=== PATIENT | female | born 1965 | race Caucasian/White ===

== ENCOUNTER → 2020-08-27 13:21 | Outpatient (BNVA) | payer OTHER, SELFPAY | PROVIDERS: Visit Provider Physician Assistant | DX: E66.9 Obesity, unspecified (principal); Z68.30 Body mass index [BMI] 30.0-30.9, adult; K90.49 Malabsorption due to intolerance, not elsewhere classified; L72.9 Follicular cyst of the skin and subcutaneous tissue, unspecified; Z98.84 Bariatric surgery status | CPT/HCPCS: 99212 ==

== ENCOUNTER → 2020-09-05 15:52 | Outpatient (BNVA) | payer OTHER, SELFPAY | PROVIDERS: Visit Provider Surgery | DX: L02.211 Cutaneous abscess of abdominal wall (principal) | CPT/HCPCS: 99202 ==

== ENCOUNTER → 2020-09-12 11:49 | Outpatient (BNVA) | payer OTHER, SELFPAY | PROVIDERS: Visit Provider Surgery | DX: L02.211 Cutaneous abscess of abdominal wall (principal) | CPT/HCPCS: 99212 ==

== ENCOUNTER → 2020-09-26 08:35 | Outpatient (BNVA) | payer OTHER, SELFPAY | PROVIDERS: Visit Provider Dietitian, Registered | DX: B37.3 Candidiasis of vulva and vagina (principal); E66.9 Obesity, unspecified | CPT/HCPCS: Q3014 ==

== ENCOUNTER → 2020-10-29 14:16 | Outpatient (BNVA) | payer OTHER, SELFPAY | PROVIDERS: PCP Internal Medicine; Visit Provider Surgery | DX: E66.3 Overweight (principal); Z68.26 Body mass index [BMI] 26.0-26.9, adult; Z98.84 Bariatric surgery status | CPT/HCPCS: 99212 ==

== ENCOUNTER → 2020-11-05 10:22 | Outpatient (BNVA) | payer OTHER, SELFPAY | PROVIDERS: PCP Internal Medicine; Referring Provider Internal Medicine; Visit Provider Hospitalist | DX: J45.909 Unspecified asthma, uncomplicated (principal) | CPT/HCPCS: Q3014 ==

== ENCOUNTER 2020-11-14 07:27 | Outpatient (REF) | payer OTHER, SELFPAY ==
[2020-11-14 07:34] VITALS: BP 116/79; PULSE 73; RESP 18; TEMP 36.2; O2SAT 100; BMI 27.1
--- NOTE | 2020-11-14 07:51 | MHC.SHP ---
Pre-Procedural Eval Section A The patient is an INPATIENT: No Changes since office visit: Yes Patient answered all questions; No Cold of Flu in the past 2 weeks, No New Medical Problems and No Changes in Medication The History & Physical has been completed within 30 days and I have reviewed it.: Yes Section B Chief Complaint: Abdominal wall abscess, Z01.818,K91.2,Z90.3 Allergies: Allergies Allergy/AdvReac Type Severity Reaction Status Date / Time Iodinated Contrast Media Allergy Intermediate ANXIETY/WALTER Verified 11/05/20 10:27 [IV CONTRAST] MORE FRUIT, SKINS Allergy Intermediate MOUTH Uncoded 11/05/20 10:[address] IV dye Allergy Unknown Anaphylaxis Uncoded 11/05/20 10:27 Plan Diagnosis/Plan: Unchanged I have reviewed the history and physical and performed a pertinent physical examination on my patient. No changes have occurred unless specified.
[2020-11-14 08:11] LABS: MANUAL DIFF FLAG NO
[2020-11-14 08:17] LABS: Basophils Percent Auto 0.8 % (0-2); Eosinophils Absolute Auto 0.1 X10*3/uL (0.0-0.4); Eosinophils Percent Auto 1.4 % (0-4); Hematocrit 39.7 % (37-47); Hemoglobin 12.2 g/dl (12.0-16.0); Imm Gran Abs Auto 0.01 X10*3/uL (0.00-0.03); Imm Gran Pct Auto 0.2 % (0.0-0.4); Lymphocytes Absolute Auto 2.4 X10*3/uL (1.2-4.9); Mean Corpuscular HGB Conc 30.7 g/dl (31.0-35.0); Mean Corpuscular Hemoglobin 27.2 pg (27.0-33.0); Mean Corpuscular Volume 88.6 fL (80-98); Monocytes Absolute Auto 0.3 X10*3/uL (0.1-1.2); Monocytes Percent Auto 6.6 % (2-11); Neutrophils Absolute Auto 2.3 X10*3/uL (2.0-8.3); Platelet Count 309 X10*3/uL (160-400); Red Blood Count 4.48 X10*6/uL (4.20-5.50); Red Cell Distribution Width 13.4 % (11.0-16.0); White Blood Count 5.2 X10*3/uL (4.8-10.8)
[2020-11-14 08:35] VITALS: BP 100/69; PULSE 60; RESP 16; O2SAT 99
--- NOTE | 2020-11-14 08:37 | PM.OP ---
Brief Operative Note Date of Service: 11/14/20 Pre-op diagnosis: Abscess abdominal epidermal inclusion cyst Post-op diagnosis: same Procedure: Excision of abdominal epidermal inclusion cyst Implants: none Surgeon: Adam Smith MD Anesthesia: local Estimated blood loss (mL): 2 Pathology: other (epidermal inclusion cyst, h/o abscess) Condition: stable Disposition: other (home)
--- NOTE | 2020-11-14 08:38 | W.PM.OPN ---
Operative Note Operative Note Date of Service: 11/14/20 Narrative: Preoperative Diagnosis: Abscess abdominal epidermal inclusion cyst Postoperative Diagnosis: same Procedure: Excision of epidermal inclusion cyst Surgeon: Adam Smith MD Anesthesia: Local Indications for procedure: 55 year old female patient with a previous history of an infected skin cyst of the left upper quadrant presenting today to excised this cyst. Findings: 1 cm cyst left upper quadrant without evidence of active infection. Complications: none EBL: 2 ml Specimen: Abdominal wall epidermal inclusion cyst with h/o abscess Procedure details:Patient was brought to the minor surgery suite and placed in a supine position. The site of surgery was confirmed by the patient in the left upper quadrant. Informed consent was assured. Skin was prepped with Betadine and draped in a sterile fashion. Local anesthesia consisting of 1% lidocaine with epinephrine was infiltrated around the cyst in elliptical fashion. An elliptical incision was then created with a scalpel carried down through subcutaneous tissue around the cyst wall. The lesion was excised and sent to pathology for further examination The wounds were irrigated and suctioned dry. Skin was then closed using a running subcuticular 4 0 Polysorb suture. Steri-Strips 2 x 2 gauze and Tegaderm were then applied. The patient tolerated the procedure well was discharged to home in stable condition.
[2020-11-14 08:40] LABS: Alanine Aminotransferase 18 U/L (0-31); Albumin Level 3.9 g/dL (3.5-5.0); Alkaline Phosphatase 67 U/L (39-117); Anion Gap 11 (12-20); Aspartate Amino Transferase 19 U/L (5-31); Bilirubin Total 0.4 mg/dL (0.0-1.0); Blood Urea Nitrogen 16 mg/dL (9-16); Calcium 9.6 mg/dL (8.4-10.2); Carbon Dioxide 33 mmol/L (22-29); Chloride 104 mmol/L (96-108); Cholesterol 217 mg/dL; Estimated Glomerular Filt Rate > 60; Glucose Fasting 93 mg/dL (60-99); HDL Cholesterol 66 mg/dL; Iron 73 mcg/dL (30-160); LDL Cholesterol Calculated 135 mg/dl; Percent Iron Saturation 23 % (15-50); Potassium 4.6 mmol/L (3.3-5.1); Sodium 143 mmol/L (135-145); Total Iron Binding Capacity 312 mcg/dL (228-428); Total Protein 6.7 g/dL (6.5-8.0); Triglycerides 82 mg/dL; Unsaturated Iron Binding 239 ug/dL
[2020-11-14 09:06] LABS: Thyroid Stimulating Hormone 2.95 uIU/mL (0.32-4.0); Vitamin D 25-OH Total 53.8 ng/mL (>30)
[2020-11-14 09:29] LABS: Vitamin B12 1097 pg/mL (200-900)
[2020-11-17 04:03] LABS: Zinc 78 mcg/dL (60-130)
[2020-11-19 06:07] LABS: Vitamin B1 25 nmol/L (8-30)
[2020-11-19 20:42] LABS: Vitamin A 37 mcg/dL (38-98)
== END 2020-11-14 07:28 | disposition home or self-care (01) ==
LOC: HO.MS 07:27
PROVIDERS: Absent Provider Surgery; Visit Provider Surgery
PROC: (CPT 11401; principal; 2020-11-14 08:00)
DX: L02.211 Cutaneous abscess of abdominal wall (principal); Z98.890 Other specified postprocedural states; Z98.84 Bariatric surgery status; Z90.3 Acquired absence of stomach [part of]; J45.909 Unspecified asthma, uncomplicated; F32.9 Major depressive disorder, single episode, unspecified; Z91.041 Radiographic dye allergy status; Z86.16 Personal history of COVID-19
CPT/HCPCS: 11401; 36415; 80053; 80061; 82306; 82607; 83540; 84425; 84443; 84590; 84630; 85025; 86140; 88304; 88305

== ENCOUNTER → 2020-11-21 15:57 | Outpatient (BNVA) | payer OTHER, SELFPAY | PROVIDERS: Visit Provider Surgery | DX: L02.211 Cutaneous abscess of abdominal wall (principal) | CPT/HCPCS: 99212 ==

== ENCOUNTER → 2020-11-28 08:22 | Outpatient (BNVA) | payer OTHER, SELFPAY | PROVIDERS: PCP Internal Medicine; Visit Provider Dietitian, Registered ==

== ENCOUNTER → 2021-02-05 14:47 | Outpatient (BNVA) | payer OTHER, SELFPAY | PROVIDERS: PCP Internal Medicine; Referring Provider Internal Medicine; Visit Provider Physician Assistant | DX: E66.3 Overweight (principal); Z68.36 Body mass index [BMI] 36.0-36.9, adult; Z98.84 Bariatric surgery status | CPT/HCPCS: 99212 ==

== ENCOUNTER → 2021-02-25 13:54 | Outpatient (BNVA) | payer OTHER, SELFPAY | PROVIDERS: PCP Internal Medicine; Referring Provider Internal Medicine; Visit Provider Dietitian, Registered | DX: E66.9 Obesity, unspecified (principal); Z68.25 Body mass index [BMI] 25.0-25.9, adult | CPT/HCPCS: 97803 ==

== ENCOUNTER → 2021-04-25 15:35 | Outpatient (BNVA) | payer OTHER, SELFPAY | PROVIDERS: PCP Internal Medicine; Referring Provider Internal Medicine; Visit Provider Surgery | DX: E66.3 Overweight (principal); K90.49 Malabsorption due to intolerance, not elsewhere classified; E55.9 Vitamin D deficiency, unspecified; Z68.25 Body mass index [BMI] 25.0-25.9, adult; Z87.891 Personal history of nicotine dependence; Z91.041 Radiographic dye allergy status; Z91.018 Allergy to other foods; Z98.84 Bariatric surgery status; Z90.3 Acquired absence of stomach [part of]; Z79.899 Other long term (current) drug therapy | CPT/HCPCS: 99212 ==

== ENCOUNTER 2021-04-26 09:44 | Outpatient (REF) | payer OTHER, SELFPAY ==
[2021-04-26 10:48] LABS: MANUAL DIFF FLAG NO
[2021-04-26 10:55] LABS: Basophils Percent Auto 0.6 % (0-2); Eosinophils Absolute Auto 0.1 X10*3/uL (0.0-0.4); Eosinophils Percent Auto 1.3 % (0-4); Hematocrit 39.6 % (37-47); Hemoglobin 11.8 g/dl (12.0-16.0); Imm Gran Abs Auto 0.01 X10*3/uL (0.00-0.03); Imm Gran Pct Auto 0.2 % (0.0-0.4); Lymphocytes Absolute Auto 1.8 X10*3/uL (1.2-4.9); Mean Corpuscular HGB Conc 29.8 g/dl (31.0-35.0); Mean Corpuscular Hemoglobin 26.6 pg (27.0-33.0); Mean Corpuscular Volume 89.4 fL (80-98); Mean Platelet Volume 9.8 fL (9.4-12.3); Monocytes Absolute Auto 0.3 X10*3/uL (0.1-1.2); Monocytes Percent Auto 5.9 % (2-11); Neutrophils Absolute Auto 2.5 X10*3/uL (2.0-8.3); Platelet Count 282 X10*3/uL (160-400); Red Blood Count 4.43 X10*6/uL (4.20-5.50); Red Cell Distribution Width 13.4 % (11.0-16.0); White Blood Count 4.7 X10*3/uL (4.8-10.8)
[2021-04-26 11:10] LABS: Estimated Average Glucose 114 mg/dL; Hemoglobin A1c % 5.6 %
[2021-04-26 11:32] LABS: Alanine Aminotransferase 24 U/L (0-31); Albumin Level 4.2 g/dL (3.5-5.0); Alkaline Phosphatase 73 U/L (39-117); Anion Gap 11 (12-20); Aspartate Amino Transferase 19 U/L (5-31); Bilirubin Total 0.6 mg/dL (0.0-1.0); Blood Urea Nitrogen 19 mg/dL (9-16); C Reactive Protein 0.11 mg/dL (< or = 0.50); Carbon Dioxide 31 mmol/L (22-29); Chloride 105 mmol/L (96-108); Cholesterol 219 mg/dL; Estimated Glomerular Filt Rate > 60; Glucose Fasting 86 mg/dL (60-99); HDL Cholesterol 79 mg/dL; Iron 96 mcg/dL (30-160); LDL Cholesterol Calculated 130 mg/dl; Percent Iron Saturation 28 % (15-50); Sodium 143 mmol/L (135-145); Total Iron Binding Capacity 344 mcg/dL (228-428); Total Protein 7.1 g/dL (6.5-8.0); Triglycerides 53 mg/dL; Unsaturated Iron Binding 248 ug/dL
[2021-04-26 11:45] LABS: Ferritin 88 ng/mL (10-250); TSH reflex Free T4 1.68 uIU/mL (0.32-4.0); Vitamin D 25-OH Total 33.3 ng/mL (>30)
[2021-04-26 11:55] LABS: Folate 16.5 ng/mL (> or = 4.0); Vitamin B12 618 pg/mL (200-900)
[2021-04-29 16:20] LABS: Calcium (PTHI) 9.8 mg/dL (8.6-10.4); PTHI 39 pg/mL (14-64)
[2021-04-30 21:11] LABS: Insulin Level Total 5.4 uIU/mL
[2021-05-01 01:42] LABS: Zinc 84 mcg/dL (60-130)
[2021-05-01 11:56] LABS: Vitamin B1 14 nmol/L (8-30)
[2021-05-01 19:51] LABS: Vitamin A 40 mcg/dL (38-98)
== END 2021-04-26 09:45 | disposition home or self-care (01) ==
LOC: HO.LAB 09:44
PROVIDERS: Visit Provider Physician Assistant
DX: E66.01 Morbid (severe) obesity due to excess calories (principal); Z68.26 Body mass index [BMI] 26.0-26.9, adult; K91.2 Postsurgical malabsorption, not elsewhere classified; Z90.3 Acquired absence of stomach [part of]; Z98.84 Bariatric surgery status
CPT/HCPCS: 36415; 80053; 80061; 82306; 82607; 82728; 82746; 83036; 83525; 83540; 83970; 84425; 84443; 84590; 84630; 85025; 86140

== ENCOUNTER → 2021-07-05 12:48 | Outpatient (BNVA) | payer OTHER, SELFPAY | PROVIDERS: PCP Internal Medicine; Visit Provider Hospitalist | DX: J45.40 Moderate persistent asthma, uncomplicated (principal); F41.9 Anxiety disorder, unspecified; J44.9 Chronic obstructive pulmonary disease, unspecified | CPT/HCPCS: 99212 ==

== ENCOUNTER 2021-08-09 14:46 | Outpatient (REF) | payer OTHER, SELFPAY ==
[2021-08-09 14:55] LABS: MANUAL DIFF FLAG NO
[2021-08-09 15:17] LABS: Basophils Absolute Auto 0.1 X10*3/uL (0.0-0.2); Basophils Percent Auto 0.8 % (0-2); Eosinophils Percent Auto 0.6 % (0-4); Hematocrit 41.2 % (37.0-47.0); Hemoglobin 12.5 g/dl (12.0-16.0); Imm Gran Abs Auto 0.01 X10*3/uL (0.00-0.03); Imm Gran Pct Auto 0.2 % (0.0-0.4); Lymphocytes Absolute Auto 1.8 X10*3/uL (1.2-4.9); Lymphocytes Percent Auto 29.1 % (20-40); Mean Corpuscular HGB Conc 30.3 g/dl (31.0-35.0); Mean Corpuscular Hemoglobin 26.8 pg (27.0-33.0); Mean Corpuscular Volume 88.2 fL (80.0-98.0); Monocytes Absolute Auto 0.4 X10*3/uL (0.1-1.2); Monocytes Percent Auto 5.9 % (2-11); Neutrophils Percent Auto 63.4 % (45-73); Platelet Count 295 X10*3/uL (160-400); Red Blood Count 4.67 X10*6/uL (4.20-5.50); Red Cell Distribution Width 13.2 % (11.0-16.0); White Blood Count 6.3 X10*3/uL (4.8-10.8)
[2021-08-09 15:21] LABS: Prothrombin Time 11.6 SEC (9.9-13.0)
[2021-08-09 15:24] LABS: Partial Thromboplastin Time 36.5 SEC (24.1-38.0)
[2021-08-09 15:39] LABS: Alanine Aminotransferase 27 U/L (0-31); Albumin Level 4.4 g/dL (3.5-5.0); Alkaline Phosphatase 73 U/L (39-117); Anion Gap 11 (12-20); Aspartate Amino Transferase 24 U/L (5-31); Bilirubin Total 0.5 mg/dL (0.0-1.0); Blood Urea Nitrogen 16 mg/dL (9-16); Calcium 9.8 mg/dL (8.4-10.2); Carbon Dioxide 31 mmol/L (22-29); Chloride 104 mmol/L (96-108); Estimated Glomerular Filt Rate > 60; Glucose Random 86 mg/dL (60-115); Potassium 4.2 mmol/L (3.3-5.1); Sodium 142 mmol/L (135-145); Total Protein 7.3 g/dL (6.5-8.0)
== END 2021-08-09 14:47 | disposition home or self-care (01) ==
LOC: HO.LAB 14:46
PROVIDERS: PCP Internal Medicine; Visit Provider Nurse Practitioner Family
DX: R58 Hemorrhage, not elsewhere classified (principal); R06.02 Shortness of breath; R06.2 Wheezing
CPT/HCPCS: 80053; 83735; 85025; 85610; 85730; U0003; U0005

== ENCOUNTER → 2022-04-18 10:44 | Outpatient (BNVA) | payer OTHER, SELFPAY | PROVIDERS: Visit Provider Nurse Practitioner Family | DX: G90.522 Complex regional pain syndrome I of left lower limb (principal); M25.562 Pain in left knee; G57.92 Unspecified mononeuropathy of left lower limb; M47.816 Spondylosis without myelopathy or radiculopathy, lumbar region; M79.7 Fibromyalgia | CPT/HCPCS: 99202 ==

== ENCOUNTER → 2022-05-28 09:41 | Outpatient (BNVA) | payer OTHER, SELFPAY | PROVIDERS: Visit Provider Nurse Practitioner Family | DX: M25.562 Pain in left knee (principal); M17.12 Unilateral primary osteoarthritis, left knee; G57.92 Unspecified mononeuropathy of left lower limb; G90.529 Complex regional pain syndrome I of unspecified lower limb | CPT/HCPCS: 99212 ==

== ENCOUNTER 2022-07-08 08:14 | Outpatient (REF) | payer OTHER, SELFPAY ==
--- NOTE | ~2022-07-08 | MR_ITS ---
EXAMINATION: MR KNEE WITHOUT CONTRAST, LEFT CLINICAL INFORMATION: Chronic left knee pain. Osteoarthritis. COMPARISON: None. TECHNIQUE: MRI of the knee without contrast was performed using routine sequences on a high-field scanner. FINDINGS: MENISCI: Medial Meniscus: Intact Lateral Meniscus: Discoid lateral meniscus without articular surface tearing. LIGAMENTS: Cruciate: Intact. Collateral: Intact. EXTENSOR MECHANISM: Intact ARTICULAR CARTILAGE/BONE: Patellofemoral Compartment: Inferior central trochlear articular cartilage signal heterogeneity and surface irregularity with areas of full-thickness loss and minimal subchondral cystic change measuring up to 1.6 cm in ML dimension. Tiny marginal osteophytes. Medial Compartment: Intact articular cartilage. Lateral Compartment: Intact articular cartilage. JOINT FLUID AND BURSAE: Trace joint effusion and trace Gibbons's cyst. MR/MR knee LT wo con IMPRESSION: 1. Partially discoid lateral meniscus without articular surface meniscal tearing. 2. Central trochlea arthrosis with areas of full-thickness loss and subchondral cystic change. Trace joint effusion and trace Gibbons's cyst.
== END 2022-07-08 08:15 | disposition home or self-care (01) ==
LOC: HO.MRI 08:14
PROVIDERS: Visit Provider Psychiatry & Neurology Neurology
DX: M17.12 Unilateral primary osteoarthritis, left knee (principal)
CPT/HCPCS: 73721

== ENCOUNTER 2022-07-11 09:57 | Outpatient (REF) | payer OTHER, SELFPAY ==
--- NOTE | 2022-07-11 | PFT_ITS ---
Forced vital capacity 98%, FEV1 101%, FEV1/FVC ratio is 81. FSA38-25 101% and MVV 91%. Post-bronchodilator therapy, there is no significant change. Total lung capacity 106%. Residual volume 102%. Diffusion capacity 101%. CONCLUSION: Normal pulmonary function test and there is no evidence of obstructive or restrictive pulmonary disorder. MD LAILA Arambula/JENNI / [id number]
== END 2022-07-11 09:58 | disposition home or self-care (01) ==
LOC: HO.RESP 09:57
PROVIDERS: Visit Provider Hospitalist
DX: J44.9 Chronic obstructive pulmonary disease, unspecified (principal)
CPT/HCPCS: 94060; 94727; 94729

== ENCOUNTER 2022-07-23 06:13 | Outpatient (REF) | payer OTHER, SELFPAY | END 2022-07-23 06:14 | disposition home or self-care (01) | LOC: CF 06:13 | PROVIDERS: Visit Provider Internal Medicine | DX: Z13.89 Encounter for screening for other disorder (principal) ==

== ENCOUNTER → 2022-10-07 13:17 | Outpatient (BNVA) | payer OTHER, SELFPAY | PROVIDERS: PCP Internal Medicine; Visit Provider Hospitalist | DX: J45.40 Moderate persistent asthma, uncomplicated (principal); R06.02 Shortness of breath; J30.9 Allergic rhinitis, unspecified; F41.9 Anxiety disorder, unspecified | CPT/HCPCS: 99212 ==

== ENCOUNTER → 2023-04-02 12:58 | Outpatient (BNVA) | payer OTHER, SELFPAY | PROVIDERS: Visit Provider Hospitalist | DX: J45.40 Moderate persistent asthma, uncomplicated (principal); J30.9 Allergic rhinitis, unspecified; R06.02 Shortness of breath | CPT/HCPCS: 99212 ==

== ENCOUNTER 2023-12-23 10:44 | Outpatient (AMB) | payer OTHER, SELFPAY ==
--- NOTE | 2023-12-23 11:02 | A.OFFVIS_ITS ---
Intake VS Expanded 12/23/23 11:09 BP 120/69 Blood Pressure Location Rt brachial Blood Pressure Position Sitting Pulse 83 Pulse Source Pulse Oximeter Temp 97.0 F Temperature Source Temporal Artery Scan Pulse Oximetry 99 Oxygen Delivery Method Room Air Height 5 ft 2 in Weight 150 lb 12.8 oz BMI 27.6 Body Fat % 38.6 Body Fat Mass 58.2 Fat Free Mass 92.6 Visceral Fat Rating 9.0 Body Water % 43.4 Body Water Mass 65.4 Muscle Mass/Score 88.0 Basal Metabolic Rate/Score 1,279 Intake Visit Reasons: (OV) PO LSG 04/24/20 Allergies Iodinated Contrast Media [IV CONTRAST] Allergy (Intermediate, Verified 12/23/23 11:07) ANXIETY/TREMORE CT IV dye Allergy (Intermediate, Uncoded 12/23/23 11:07) Anaphylaxis FRUIT, SKINS Allergy (Intermediate, Uncoded 12/23/23 11:07) MOUTH ITCHING Medication List - Last Reconciled 12/23/23 by JOY Ramirez acetaminophen 500 mg PO Q4-6H PRN 30 days albuterol sulfate 90 mcg/actuation 1 inh inhalation Q6H PRN albuterol sulfate 90 mcg/actuation 2 inhalations inhalation Q6H PRN 30 days albuterol sulfate 2.5 mg (3 mL) inhalation Q6H PRN 30 days aspirin 325 mg PO DAILY azelastine 2 sprays intranasal BID 90 days calcium carbonate (Calcium 500) 500 mg PO BID cariprazine (Vraylar) 3 mg PO QAM cetirizine 10 mg PO DAILY cetirizine (Zyrtec) 10 mg PO DAILY 30 days cholecalciferol (vitamin D3) 50 mcg PO DAILY 90 days diphenhydramine HCl (Banophen) 50 mg PO BEDTIME PRN epinephrine IM DIRECTED estradiol (Yuvafem) 0 mcg vaginal fluticasone propionate 50 mcg/actuation 2 sprays intranasal DAILY 30 days xkttaebprum-atquubdiv-ywpghhfn 200-62.5-25 mcg (Trelegy Ellipta) 1 inh inhalation DAILY 30 days hydrocortisone 1% topical BID lidocaine 5% 3 patches topical DAILY loratadine 10 mg PO DAILY 30 days meloxicam 15 mg PO DAILY mometasone-formoterol 100-5 mcg/actuation (Dulera) 2 puffs inhalation Q12H 30 days montelukast (Singulair) 10 mg PO BEDTIME 30 days svssengvpuwz-svp-tqmw-FA-vit K 45 mg iron- 800 mcg-120 mcg (Bariatric Multivitamins) caps PO nebulizers As directed pantoprazole 0 mg PO pregabalin 100 mg PO BID 30 days quetiapine 100 mg PO BEDTIME sennosides (senna) 8.6 mg PO BEDTIME PRN 30 days sertraline 300 mg PO Q OTHER DAY PRN sucralfate 10 mL PO QID trazodone 25 mg (1/2 x 50 mg) PO BEDTIME PRN zolpidem 10 mg PO BEDTIME HPI HPI Comments History of Present Illness Details This?is a?58?yo female who is s/p LSG 04/24/[address] Chery. Presents for 3 year 8 month post op visit. Weight at last visit on was 139.6 pounds with a BMI of 25.5, weight today is 150.8 pounds, representing an 11.2 pound weight gain with a BMI today of 27.6.? No complaints of nausea, emesis, abdominal pain or reflux, or constipation. 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 Brother No problems noted. Brother No problems noted. Brother No problems noted. Sister No problems noted. Sister No problems noted. Sister No problems noted. Sister No problems noted. Son No problems noted. Daughter No problems noted. Family/Other Mental health disorder Substance use disorder Social History Housing: Apartment Alcohol intake: never Patient Tobacco Use Status: Former Tobacco user Tobacco use type: Cigarette Years Smoked: 19 e-Cigarette/Vaping Use: Never Used Second Hand Smoke Exposure: No service: No Current occupational status: unemployed Physical Exam Vital Signs: Last Vital Signs Temp 97.0 F 12/23/23 11:09 Pulse 83 12/23/23 11:09 BP 120/69 12/23/23 11:09 Pulse Ox 99 12/23/23 11:09 Oxygen Delivery Method Room Air 12/23/23 11:09 BMI result Body Mass Index 27.6 Assessment & Plan Assessment & Plan (1) Overweight: Code(s): E66.3 - Overweight (2) S/P laparoscopic sleeve gastrectomy: Code(s): Z98.84 - Bariatric surgery status Plan Pt's current eating habits appear very low in protein. Discussed restarting a high protein meal plan. Breakfast- Orgain shake, 2 scoops in 8oz unsweetened almond milk Lunch- ONE bar, can have with some fruit Dinner- 6 forks protein, 6 forks salad/veg Labs ordered. RTC 6 weeks for accountability. Texted meal plan to pt and encouraged her to reach out between appts with any concerns. Patient is overweight and is not considered stable at this time. I spent a total of 30 minutes reviewing/updating records, examining the patient and counseling the patient on weight management as detailed above. Orders: Orders Insulin Today Z98.84 - Bariatric surgery status Lipid Panel Today Z98.84 - Bariatric surgery status Comprehensive Met. Panel Today Z.84 - Bariatric surgery status Vitamin B12 and Folate Today Z98.84 - Bariatric surgery status Zinc Today Z98.84 - Bariatric surgery status Vitamin B1 Today Z98.84 - Bariatric surgery status Vitamin A Today Z98.84 - Bariatric surgery status TSH reflex Free T4 Today Z98.84 - Bariatric surgery status Vitamin D 25-OH Total Today Z98.84 - Bariatric surgery status Hemoglobin A1c Today Z98.84 - Bariatric surgery status Complete Blood Count Auto Diff Today Z98.84 - Bariatric surgery status IRON PROFILE Today Z98.84 - Bariatric surgery status C Reactive Protein Today Z98.84 - Bariatric surgery status Ferritin Today Z98.84 - Bariatric surgery status Quality Reporting (2019) Adult ([facility] ) Smoking risk assessment performed?: Yes Patient Tobacco Use Status: Former Tobacco user Coding Level of Care Code Est Pt Level 4 (81006) Diagnoses Overweight E66.3 S/P laparoscopic sleeve gastrectomy Z98.84
[2023-12-23 11:09] VITALS: BP 120/69; PULSE 83; TEMP 36.1; O2SAT 99; BMI 27.6
== END 2023-12-23 11:54 | disposition home or self-care (01) ==
PROVIDERS: PCP Internal Medicine; Visit Provider Physician Assistant Surgical
DX: E66.3 Overweight (principal); Z98.84 Bariatric surgery status
CPT/HCPCS: 99214

== ENCOUNTER 2023-12-23 10:44 | Outpatient (REF) | payer OTHER, SELFPAY ==
[2023-12-23 12:15] LABS: MANUAL DIFF FLAG NO
[2023-12-23 12:34] LABS: Basophils Absolute Auto 0.1 X10*3/uL (0.0-0.2); Basophils Percent Auto 1.6 % (0-2); Eosinophils Absolute Auto 0.1 X10*3/uL (0.0-0.4); Eosinophils Percent Auto 2.7 % (0-4); Hematocrit 41.4 % (37.0-47.0); Hemoglobin 12.6 g/dl (12.0-16.0); Imm Gran Abs Auto 0.01 X10*3/uL (0.00-0.03); Imm Gran Pct Auto 0.2 % (0.0-0.4); Lymphocytes Absolute Auto 1.5 X10*3/uL (1.2-4.9); Lymphocytes Percent Auto 34.2 % (20-40); Mean Corpuscular HGB Conc 30.4 g/dl (31.0-35.0); Mean Corpuscular Hemoglobin 26.8 pg (27.0-33.0); Mean Corpuscular Volume 88.1 fL (80.0-98.0); Mean Platelet Volume 9.1 fL (9.4-12.3); Monocytes Absolute Auto 0.3 X10*3/uL (0.1-1.2); Monocytes Percent Auto 5.6 % (2-11); Neutrophils Absolute Auto 2.5 x10*3/uL (2.0-8.3); Neutrophils Percent Auto 55.7 % (45-73); Platelet Count 370 X10*3/uL (160-400); Red Cell Distribution Width 13.4 % (11.0-16.0); White Blood Count 4.5 X10*3/uL (4.8-10.8)
[2023-12-23 12:42] LABS: Estimated Average Glucose 120 mg/dL; Hemoglobin A1c % 5.8 % (<6.0)
[2023-12-23 13:22] LABS: Alanine Aminotransferase 17 U/L (0-31); Albumin Level 4.6 g/dL (3.5-5.0); Alkaline Phosphatase 67 U/L (39-117); Anion Gap 12 (12-20); Aspartate Amino Transferase 19 U/L (5-31); Bilirubin Total 0.3 mg/dL (0.0-1.0); Blood Urea Nitrogen 18 mg/dL (9-16); Calcium 10.1 mg/dL (8.4-10.2); Carbon Dioxide 31 mmol/L (22-29); Chloride 103 mmol/L (96-108); Cholesterol 275 mg/dL (<200); Estimated Glomerular Filt Rate > 60; Glucose Random 84 mg/dL (60-115); HDL Cholesterol 80 mg/dL (>40); Iron 110 mcg/dL (30-160); LDL Cholesterol Calculated 172 mg/dL (<100); Percent Iron Saturation 33 % (15-50); Sodium 142 mmol/L (135-145); Total Iron Binding Capacity 338 mcg/dL (228-428); Total Protein 8.3 g/dL (6.5-8.0); Triglycerides 116 mg/dL (<150); Unsaturated Iron Binding 228 ug/dL
[2023-12-23 13:44] LABS: Ferritin 83 ng/mL (10-250); Insulin 12 uU/mL (2-29); TSH reflex Free T4 2.77 uIU/mL (0.32-4.0); Vitamin D 25-OH Total 32.1 ng/mL (>30)
[2023-12-23 13:53] LABS: Folate 13.4 ng/mL (> or = 4.0); Vitamin B12 706 pg/mL (200-900)
[2023-12-28 10:09] LABS: Zinc 92 mcg/dL (60-130)
[2023-12-29 06:28] LABS: Vitamin B1 19 nmol/L (8-30)
[2023-12-30 01:48] LABS: Vitamin A 71 mcg/dL (38-98)
== END 2023-12-23 10:45 | disposition home or self-care (01) ==
LOC: HO.LAB 10:44
PROVIDERS: Visit Provider Physician Assistant Surgical
DX: Z13.6 Encounter for screening for cardiovascular disorders (principal); Z98.84 Bariatric surgery status
CPT/HCPCS: 36415; 80053; 80061; 82306; 82607; 82728; 82746; 83036; 83525; 83540; 84425; 84443; 84590; 84630; 85025; 86140; 99212

== ENCOUNTER → 2024-02-08 09:10 | Outpatient (BNVA) | payer OTHER, SELFPAY | PROVIDERS: Visit Provider Physician Assistant Surgical ==

== ENCOUNTER 2024-02-08 09:40 | Outpatient (AMB) | payer OTHER, SELFPAY ==
--- NOTE | 2024-02-08 09:34 | MHC.OFFVISWM ---
Intake Visit Reasons: (telephone) PO LSG 04/24/20 Allergies Iodinated Contrast Media [IV CONTRAST] Allergy (Intermediate, Verified 12/23/23 11:07) ANXIETY/TREMORE CT IV dye Allergy (Intermediate, Uncoded 12/23/23 11:07) Anaphylaxis FRUIT, SKINS Allergy (Intermediate, Uncoded 12/23/23 11:07) MOUTH ITCHING Medication List - Last Reconciled 02/08/24 by JOY Ramirez acetaminophen 500 mg PO Q4-6H PRN 30 days albuterol sulfate 90 mcg/actuation 1 inh inhalation Q6H PRN albuterol sulfate 90 mcg/actuation 2 inhalations inhalation Q6H PRN 30 days albuterol sulfate 2.5 mg (3 mL) inhalation Q6H PRN 30 days aspirin 325 mg PO DAILY azelastine 2 sprays intranasal BID 90 days calcium carbonate (Calcium 500) 500 mg PO BID cariprazine (Vraylar) 3 mg PO QAM cetirizine 10 mg PO DAILY cetirizine (Zyrtec) 10 mg PO DAILY 30 days cholecalciferol (vitamin D3) 50 mcg PO DAILY 90 days diphenhydramine HCl (Banophen) 50 mg PO BEDTIME PRN epinephrine IM DIRECTED estradiol (Yuvafem) 0 mcg vaginal fluticasone propionate 50 mcg/actuation 2 sprays intranasal DAILY 30 days fnpgoivrkub-qadqhbkow-mltudcgz 200-62.5-25 mcg (Trelegy Ellipta) 1 inh inhalation DAILY 30 days hydrocortisone 1% topical BID lidocaine 5% 3 patches topical DAILY loratadine 10 mg PO DAILY 30 days meloxicam 15 mg PO DAILY mometasone-formoterol 100-5 mcg/actuation (Dulera) 2 puffs inhalation Q12H 30 days montelukast (Singulair) 10 mg PO BEDTIME 30 days eosczylzbooz-rku-lmlp-FA-vit K 45 mg iron- 800 mcg-120 mcg (Bariatric Multivitamins) caps PO nebulizers As directed pantoprazole 0 mg PO pregabalin 100 mg PO BID 30 days quetiapine 100 mg PO BEDTIME sennosides (senna) 8.6 mg PO BEDTIME PRN 30 days sertraline 300 mg PO Q OTHER DAY PRN sucralfate 10 mL PO QID trazodone 25 mg (1/2 x 50 mg) PO BEDTIME PRN zolpidem 10 mg PO BEDTIME HPI Comments Details: This?is a?58?yo female who is s/p LSG 04/24/2020. Weight at last visit on 12/23/2023 was 150.8 pounds with a BMI of 27.6, weight today is same.? No complaints of nausea, emesis, abdominal pain or reflux, or constipation. 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 Brother No problems noted. Brother No problems noted. Brother No problems noted. Sister No problems noted. Sister No problems noted. Sister No problems noted. Sister No problems noted. Son No problems noted. Daughter No problems noted. Family/Other Mental health disorder Substance use disorder Social History Housing: Apartment Alcohol intake: never Patient Tobacco Use Status: Former Tobacco user Tobacco use type: Cigarette Years Smoked: 19 e-Cigarette/Vaping Use: Never Used Second Hand Smoke Exposure: No service: No Current occupational status: unemployed Quality Reporting (2019) Adult ([facility] 138//) Smoking risk assessment performed?: Yes Patient Tobacco Use Status: Former Tobacco user Telehealth Telehealth Telehealth Platform: Telephone Location of provider rendering services: practice address Location of patient: address on file Patient Identification confirmed using: Name, : Yes Telehealth method: voice only Patient verbally consented to treatment: Yes Patient verbally consented to billing insurance company: Yes Patient informed of any privacy concerns related to visit: Yes Minutes spent on Phone/Video with Pt.: 12 Assessment & Plan Assessment & Plan (1) Overweight: Code(s): E66.3 - Overweight Category: Medical (2) S/P laparoscopic sleeve gastrectomy: Code(s): Z98.84 - Bariatric surgery status Category: Surgical Plan Will keep same meal plan for now as pt reports doing well on it. She is comfortable at current weight. Labs reviewed, pt encouraged to discuss elevated cholesterol levels with PCP. RTC 3 months, texted pt my contact info for any questions between visits. Patient is overweight and is not considered stable at this time. I spent a total of 30 minutes reviewing/updating records, examining the patient and counseling the patient on weight management as detailed above.
--- OUTSIDE RECORDS SUMMARY | 2024-02-08 09:42 | XMS_ITS | Continuity of Care Document ---
Author Organization [facility] ter Address [address] [place] [address]- Care Team Providers Care Regrind Mill Operator Name Role Phone Melly Angel Primary Care Physician [phone] Encounter [facility] Date(s): 11/15/19 - 12/30/[address] [address]- [facility] Attending Physician: Ramon MACHADO, Basilio Lindsey Allergies, Adverse Reactions, Alerts Substance Reaction Severity Status Contrast Dye Active Immunizations Given and Recorded Vaccine Date Status Refusal Reason tetanus/diphtheria/pertussis, acel(Tdap) 01/22/08 Given Medications albuterol albuterol, 2, puffs, Refills 0, Maintenance, 06/14/19 16:34:09 EDT, Compound Start Date: 06/14/19 Status: Ordered Flovent 110 mcg Inhaler HFA 2, puffs, Inhalation, 2 times a day, 1, 0, 0, 12/09/07 13:37:43, ADS [address] [address], [id number] Start Date: 12/09/07 Status: Ordered Fluoxetine Capsule 60, mg, By Mouth, Daily, 30, 0, 0, 12/09/07 13:37:45, ADS OPPT, [address] [address], [id number] Start Date: 12/09/07 Status: Ordered Nexium Capsule 40, mg, By Mouth, 2 times a day, 30, 0, 0, 12/09/07 13:37:40, ADS [address] [address], [id number] Start Date: 12/09/07 Status: Ordered Remeron Tablet 15, mg, By Mouth, Daily, 30, 0, 0, 12/09/07 13:37:47, ADS [address] [address], [id number] Start Date: 12/09/07 Status: Ordered Seroquel Tablet 900, mg, By Mouth, Daily at bedtime, 30, 0, 0, 12/09/07 13:37:43, ADS [address] [address], 144 Start Date: 12/09/07 Status: Ordered tramadol 50 mg oral tablet 1 tablet = 50 mg, By Mouth, Every 4 hours, PRN Pain, # 18 tablet, 0 Refills, Maintenance Start Date: 01/21/11 Stop Date: 01/24/11 Status: Ordered Trazodone Tablet 200, mg, By Mouth, Daily at bedtime, 30, 0, 0, 12/09/07 13:37:42, May repeat x 1, ADS [address] [address], 144 Start Date: 12/09/07 Status: Ordered Trileptal Tablet 600, mg, By Mouth, 2 times a day, 250, mL, 0, 0, 12/09/07 13:37:49, ADS [address] [address], [id number] Start Date: 12/09/07 Status: Ordered
--- OUTSIDE RECORDS SUMMARY | 2024-02-08 09:42 | XMS_ITS | Continuity of Care Document ---
Author Organization [facility] Address [address] [place] [address]- Care Team Providers Care Structural Technician Name Role Phone Lobo Graham MD Primary Care Physician Encounter [facility] Date(s): 10/29/23 - 12/26/[address] [address]- Attending Physician: Not on Staff, Attending MD Allergies, Adverse Reactions, Alerts Substance Reaction Severity Status Contrast Dye Active Immunizations Given and Recorded Vaccine Date Status Refusal Reason zoster vaccine, inactivated 12/11/21 Recorded influenza virus vaccine, inactivated 10/03/21 Roverto rded influenza virus vaccine, inactivated 08/10/20 Roverto rded influenza virus vaccine, inactivated 06/10/19 Roverto rded influenza virus vaccine, inactivated 06/02/18 Roverto rded influenza virus vaccine, inactivated 08/17/15 Roverto rded SARS-CoV-2 (COVID-19) mRNA BNT-162b2 vac 10/03/21 Recorded SARS-CoV-2 (COVID-19) mRNA BNT-162b2 vac 02/25/21 Recorded SARS-CoV-2 (COVID-19) mRNA BNT-162b2 vac 02/04/21 Recorded pneumococcal 23-valent vaccine 09/19/19 Recorded tetanus-diphtheria toxoids (Td) 06/13/19 Recorded tetanus-diphtheria toxoids (Td) 01/04/08 Recorded tetanus/diphtheria/pertussis, acel(Tdap) 01/22/08 Given Medications albuterol albuterol, 2, puffs, Refills 0, Maintenance, 06/14/19 16:34:09 EDT, Compound Start Date: 06/14/19 Status: Ordered Breo Ellipta 200 mcg-25 mcg/inh inhalation powder INHALE UN SOPLIDO INHALATION DAILY Start Date: 03/19/22 Status: Ordered diclofenac 1% topical gel 1 application, Topically, 4 times a day, para tratar inflammacion/ artritis en los dedos., # 100 Gm, 11 Refills, Maintenance, 12/30/22 8:20:00 EDT, Gel, [facility]/pharmacy #[id number], Partial fill upon patient request if the prescription is for a schedule II opi... Start Date: 12/30/22 Status: Ordered FLUoxetine 20 mg oral capsule 20 mg, 1, capsule, TOME BENJA C PSULA TODOS LOS D EN LA BREN OSHEA (rx'd by ; Claudia Coronel) Start Date: 12/30/22 Status: Ordered meloxicam 15 mg oral tablet 1 tablet = 15 mg, By Mouth, Daily, # 30 tablet, 0 Refills, Maintenance, 05/15/23 16:39:00 EDT, Tablet, [facility]/pharmacy #[id number], Partial fill upon patient request if the prescription is for a schedule II opioid drug., 151, cm, 05/15/23 15:30:00 EDT, Height,... Start Date: 05/15/23 Status: Ordered ondansetron 4 mg oral tablet, disintegrating 1 tablet = 4 mg, By Mouth, 3 times a day, PRN Nausea & Vomiting, anisha sea necesario para nausea, # 30 tablet, 3 Refills, Maintenance, 05/15/23 16:29:00 EDT, Tablet, [facility]/pharmacy #[id number], Partial fill upon patient request if the prescription is for a mendez... Start Date: 05/15/23 Stop Date: 09/12/23 Status: Ordered pantoprazole 40 mg oral delayed release tablet See Instructions, TOME BENJA TABLETA TODOS LOS AGUILAR, # 90 tablet, 5 Refills, Maintenance, 05/15/23 16:29:00 EDT, 151, cm, 05/15/23 15:30:00 EDT, Height, 62.6, kg, 07/29/21 13:46:00 EDT, Dry Weight Start Date: 05/15/23 Status: Ordered QUEtiapine 100 mg oral tablet TOME DOS TABLETAS POR VIA ORAL TODOS LOS AGUILAR AL ACOSTARSE Start Date: 03/19/22 Status: Ordered scopolamine 1 mg/72 hr transdermal film, extended release 1 patch, Topically, Every 72 hours, apply to skin, keep on for 72 hours, may make you drowsy, please do not drive until you are aware of your side effects, # 4 patch, 1 Refills, Maintenance, 05/15/2316:30:00 EDT, [id number], Partial fill upon... Start Date: 05/15/23 Status: Ordered Ventolin HFA 108 mcg/inh inhalation aerosol with adapter 1 puffs, Inhalation, 4 times a day, PRN for wheezing, # 18 Gm, 0 Refills, Maintenance, 03/19/22 9:31:00 EDT, Aerosol, Partial fill upon patient request if the prescription is for a schedule II opioiddrug. Start Date: 03/19/22 Status: Ordered Vitamin D3 2000 intl units oral capsule See Instructions, TOME 1 CAPSULA POR VIA ORAL A DIARIO, # 90 capsule, 2 Refills, Maintenance, 06/23/23 8:30:00 EDT, [facility], 151, cm, 06/15/23 13:55:00 EDT, Height, 62.6, kg, 07/29/21 13:46:00 EDT, Dry Weight Start Date: 06/23/23 Status: Ordered Problem List Condition Confirmation Course Effective Dates Status H ealth Status Informant Bipolar disorder in remission Confirmed Active Chronic post-traumatic stress disorder (PTSD) Confirmed Active Family history of gastric cancer Confirmed Active Generalized anxiety disorder with panic attacks Confirmed Active Left hand pain 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
--- OUTSIDE RECORDS SUMMARY | 2024-02-08 09:42 | XMS_ITS | Continuity of Care Document ---
Author Organization [facility] Address Unknown Care Team Providers Care Straightedge Man Name Role Phone Melly Angel Primary Care Physician [phone] Encounter [facility] Date(s): 06/27/21 - 07/27/21 [facility] Referring Physician: Dk Aguila Allergies, Adverse Reactions, Alerts Substance Reaction Severity Status Contrast Dye Active Immunizations Given and Recorded Vaccine Date Status Refusal Reason tetanus/diphtheria/pertussis, acel(Tdap) 01/22/08 Given Medications albuterol albuterol, 2, puffs, Refills 0, Maintenance, 06/14/19 16:34:09 EDT, Compound Start Date: 06/14/19 Status: Ordered Flovent 110 mcg Inhaler HFA 2, puffs, Inhalation, 2 times a day, 1, 0, 0, 12/09/07 13:37:43, ADS [address] [address], [id number] Start Date: 12/09/07 Status: Ordered Fluoxetine Capsule 60, mg, By Mouth, Daily, 30, 0, 0, 12/09/07 13:37:45, ADS OPPT, [address] [address], [id number] Start Date: 12/09/07 Status: Ordered Nexium Capsule 40, mg, By Mouth, 2 times a day, 30, 0, 0, 12/09/07 13:37:40, ADS [address] [address], [id number] Start Date: 12/09/07 Status: Ordered Remeron Tablet 15, mg, By Mouth, Daily, 30, 0, 0, 12/09/07 13:37:47, ADS OPPT, [address] [address], [id number] Start Date: 12/09/07 Status: Ordered Seroquel Tablet 900, mg, By Mouth, Daily at bedtime, 30, 0, 0, 12/09/07 13:37:43, ADS [address] [address], 144 Start Date: 12/09/07 Status: Ordered tramadol 50 mg oral tablet 1 tablet = 50 mg, By Mouth, Every 4 hours, PRN Pain, # 18 tablet, 0 Refills, Maintenance Start Date: 01/21/11 Stop Date: 01/24/11 Status: Ordered Trazodone Tablet 200, mg, By Mouth, Daily at bedtime, 30, 0, 0, 12/09/07 13:37:42, May repeat x 1, ADS [address] [address], 144 Start Date: 12/09/07 Status: Ordered triamcinolone 0.1% topical cream 1 application, Topically, 3 times a day, # 30 Gm, 0 Refills, Maintenance, 03/06/21 13:35:00 EDT, Cream, [facility]/pharmacy #[id number], Partial fill upon patient request if the prescription is for a schedule II opioid drug., 1 application Topically 3 times a day,... Start Date: 03/06/21 Status: Ordered Trileptal Tablet 600, mg, By Mouth, 2 times a day, 250, mL, 0, 0, 12/09/07 13:37:49, ADS [address] [address], [id number] Start Date: 12/09/07 Status: Ordered ZyrTEC 10 mg oral tablet 1 tablet = 10 mg, By Mouth, Daily, # 30 tablet, 0 Refills, Maintenance, 04/25/21 12:13:00 EDT, Tablet, [facility]/pharmacy #[id number], Partial fill upon patient request if the prescription is for a schedule II opioid drug., 157.48, cm, 04/25/21 12:02:00 EDT, Heig... Start Date: 04/25/21 Status: Ordered
--- OUTSIDE RECORDS SUMMARY | 2024-02-08 09:42 | XMS_ITS | Continuity of Care Document ---
Author Organization [facility] Address [address] [place] [address]- Care Team Providers Care Legal Executive Name Role Phone Lobo Graham MD Primary Care Physician Encounter [facility] Date(s): 06/26/23 - 07/26/[address] [address]- Allergies, Adverse Reactions, Alerts Substance Reaction Severity [...] 11 Refills, Maintenance, 12/30/22 8:20:00 EDT, Gel, [facility]/pharmacy #[id number], Partial fill upon patient request if the prescription is for a schedule II opi... Start Date: 12/30/22 Status: Ordered FLUoxetine 20 mg oral capsule 20 mg, 1, capsule, TOME BENJA C PSULA TOS LOS D EN LA BREN DAYO (rx'd by ; Claudia Coronel) Start Date: 12/30/22 Status: Ordered meloxicam 15 mg oral tablet 1 tablet = 15 mg, By Mouth, Daily, # 30 tablet, 0 Refills, Maintenance, 05/15/23 16:39:00 EDT, Tablet, [facility]/pharmacy #[id number], Partial fill upon patient request if the prescription is for a schedule II opioid drug., 151, cm, 05/15/23 15:30:00 EDT, Height,... Start Date: 05/15/23 Status: Ordered ondansetron 4 mg oral tablet, disintegrating 1 tablet = 4 mg, By Mouth, 3 times a day, PRN Nausea & Vomiting, anisha sea necesario para nausea, # 30 tablet, 3 Refills, Maintenance, 05/15/23 16:29:00 EDT, Tablet, [facility]/pharmacy #[id number], Partial fill upon patient request if [...] Refills, Maintenance, 06/23/23 8:30:00 EDT, [facility], 151, cm, 06/15/23 13:55:00 EDT, Height, 62.6, kg, 07/29/21 13:46:00 EDT, Dry Weight Start Date: 06/23/23 Status: Ordered Problem List Condition Confirmation Course Effective Dates Status H ealth Status Informant Bipolar disorder in remission Confirmed Active Chronic post-traumatic stress disorder (PTSD) Confirmed Active Family history of gastric cancer Confirmed Active Generalized anxiety disorder with panic attacks Confirmed Active Left hand pain Confirmed Active care home current use of antipsychotic medication Confirmed Active Chronic nausea Confirmed Active Obese class I Confirmed Active Occipital headache Confirmed Active Osteoarthritis of both hands Confirmed Active Urticaria Confirmed Active Social History Social History Type Response Smoking Status Former smoker, quit more than 30 days ago entered on: 07/29/21 Sex Patient Care team information Care Team Personnel Name: Lobo Graham MD Position: [facility] Resident Member Role: PCP Address: Address: [address] [place] [address]- Care Team Related Persons Name: MARYLOU SEPULVEDA Address: home [address] [place] [address] Name: KYRIE RICO Address: home [address] [address]
--- OUTSIDE RECORDS SUMMARY | 2024-02-08 09:42 | XMS_ITS | Continuity of Care Document ---
Author Organization [facility] Address [address] [place] [address]- Care Team Providers Care Licensed Nurse Practitioner Name Role Phone Melly Angel Primary Care Physician Encounter [facility] [place] Date(s): 03/06/21 - 03/13/21 [facility] [address] [place] [address]- Encounter Diagnosis Urticaria(Discharge Diagnosis) - 03/06/21 Attending Physician: Kermit Graf MD Referring Physician: Not on Staff, Referring MD Allergies, Adverse Reactions, Alerts Substance Reaction Severity Status Contrast Dye Active Immunizations Given and Recorded Vaccine Date Status Refusal Reason tetanus/diphtheria/pertussis, acel(Tdap) 01/22/08 Given Medications albuterol albuterol, 2, puffs, Refills 0, Maintenance, 06/14/19 16:34:09 EDT, Compound Start Date: 06/14/19 Status: Ordered Flovent 110 mcg Inhaler HFA 2, puffs, Inhalation, 2 times a day, 1, 0, 0, 12/09/07 13:37:43, ADS [address] [address], [id number] Start Date: 12/09/07 Status: Ordered Fluoxetine Capsule 60, mg, By Mouth, Daily, 30, 0, 0, 12/09/07 13:37:45, ADS [address] [address], [id number] Start Date: 12/09/07 Status: Ordered Nexium Capsule 40, mg, By Mouth, 2 times a day, 30, 0, 0, 12/09/07 13:37:40, ADS [address] [address], [id number] Start Date: 12/09/07 Status: Ordered Remeron Tablet 15, mg, By Mouth, Daily, 30, 0, 0, 12/09/07 13:37:47, [address] [address], [id number]+006 Start Date: 12/09/07 Status: Ordered Seroquel Tablet 900, mg, By Mouth, Daily at bedtime, 30, 0, 0, 12/09/07 13:37:43, [address] [address], [address] Start Date: 12/09/07 Status: Ordered tramadol 50 mg oral tablet 1 tablet = 50 mg, By Mouth, Every 4 hours, PRN Pain, # 18 tablet, 0 Refills, Maintenance Start Date: 01/21/11 Stop Date: 01/24/11 Status: Ordered Trazodone Tablet 200, mg, By Mouth, Daily at bedtime, 30, 0, 0, 12/09/07 13:37:42, May repeat x 1, [address] [address], [address] Start Date: 12/09/07 Status: Ordered triamcinolone 0.1% topical cream 1 application, Topically, 3 times a day, # 30 Gm, 0 Refills, Maintenance, 03/06/21 13:35:00 EDT, Cream, [id number], Partial fill upon patient request if the prescription is for a schedule II opioid drug., 1 application Topically 3 times a day,... Start Date: 03/06/21 Status: Ordered Trileptal Tablet 600, mg, By Mouth, 2 times a day, 250, mL, 0, 0, 12/09/07 13:37:49, [address] [address], [id number] Start Date: 12/09/07 Status: Ordered Problem List Diagnosis Diagnosis Type Effective Dates Health Status Clini elieser Service Informant Urticaria Discharge Diagnosis 03/06/21 Vital Signs Most recent to oldest [Reference Range]: 1 Height 157.48 cm (03/06/21 1:00 PM) Weight 64.3 kg (03/06/21 1:00 PM) Oxygen Saturation [94-100 %] 100 % (03/06/21 1:00 PM) Pulse Rate [55-90 bpm] 60 bpm (03/06/21 1:00 PM) Body Mass Index [18.5-24.99] 25.93 *H* (03/06/21 1:00 PM) Blood Pressure [90-138/55-84 mm Hg] 120/ 73mm Hg (03/06/21 1:00 PM) Respiratory Rate [16-30 br/min] 16 br/mi n (03/06/21 1:00 PM) Temperature [96.8-100.4 DegF] 97.1 DegF (03/06/21 1:00 PM) Mode of Delivery (Oxygen) Room air (03/06/21 1:00 PM) Blood pressure sites Arm, right (03/06/21 1:00 PM) Temperature Route Temporal (03/06/21 1:00 PM) Dry Weight 64.3 kg (03/06/21 1:00 PM) Weight Obtained Via Standing scale (03/06/21 1:00 PM) Dry Weight Obtained Via Standing scale (03/06/21 1:00 PM)
--- OUTSIDE RECORDS SUMMARY | 2024-02-08 09:42 | XMS_ITS | Continuity of Care Document ---
Author Organization [facility] Address [address] [place] [address]- Care Team Providers Care Assembler Golf Wood Head Name Role Phone Lobo Graham MD Primary Care Physician Encounter [facility] [place] Date(s): 04/06/23 - 06/12/[address] [address]- Encounter Diagnosis Low back pain, unspecified(Final) - Discharge Disposition: A-D/C Home Attending Physician: Marci Voss MD Admitting Physician: Marci Voss MD Referring Physician: Marci Voss MD Allergies, Adverse Reactions, Alerts Substance Reaction [...] 11 Refills, Maintenance, 12/30/22 8:20:00 EDT, Gel, [facility]/pharmacy #[id number], Partial fill upon [...] 0 Refills, Maintenance, 05/15/23 16:39:00 EDT, Tablet, [facility]/pharmacy #[id number], Partial fill upon [...] 3 Refills, Maintenance, 05/15/23 16:29:00 EDT, Tablet, [facility]/pharmacy #[id number], Partial fill upon [...] II opioiddrug. 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
--- OUTSIDE RECORDS SUMMARY | 2024-02-08 09:42 | XMS_ITS | Continuity of Care Document ---
Author Organization [facility] Address [address] [place] [address]- Care Team Providers Care Divorce Mediator Name Role Phone Lobo Graham MD Primary Care Physician Encounter [facility] [place] Date(s): 05/28/23 - 07/15/[address] [address] Attending Physician: Angelina Flores MD Admitting Physician: Angelina Flores MD Referring Physician: Awilda Zuniga MD Allergies, Adverse Reactions, Alerts Substance Reaction [...] 11 Refills, Maintenance, 12/30/22 8:20:00 EDT, Gel, [facility]/pharmacy #[id number], Partial fill upon patient request [...] 0 Refills, Maintenance, 05/15/23 16:39:00 EDT, Tablet, [facility]/pharmacy #[id number], Partial fill upon patient request [...] 3 Refills, Maintenance, 05/15/23 16:29:00 EDT, Tablet, [facility]/pharmacy #[id number], Partial fill upon patient request [...] 4 patch, 1 Refills, Maintenance, 05/15/2316:30:00 EDT, [facility]/pharmacy #[id number], Partial fill upon... Start Date: 05/15/23 [...] Refills, Maintenance, 06/23/23 8:30:00 EDT, [facility], 151, cm, 06/15/23 13:55:00 EDT, Height, 62.6, kg, 07/29/21 13:46:00 EDT, Dry Weight Start Date: 06/23/23 Status: Ordered Problem List Condition Confirmation Course Effective Dates Status H ealth Status Informant Bipolar disorder in remission Confirmed Active Chronic post-traumatic stress disorder (PTSD) Confirmed Active Family history of gastric cancer Confirmed Active Generalized anxiety disorder with panic attacks Confirmed Active Left hand pain Confirmed Active [facility] current use of antipsychotic medication Confirmed Active [...] S Resident Member Role: PCP Address: Address: [address] [place] [address]- Care Team Related Persons Name: MARYLOU SEPULVEDA Address: home [address] [place] [address] Name: KYRIE RICO Address: home [address] [address]
--- OUTSIDE RECORDS SUMMARY | 2024-02-08 09:42 | XMS_ITS | Continuity of Care Document ---
Author Organization [facility] Address [address] [place] [address]- Care Team Providers Care Pricing Consultant Name Role Phone Lobo Graham MD Primary Care Physician Encounter [facility] [place] Date(s): 10/26/23 - 11/26/[address] [address]- Attending Physician: Not on Staff, Attending MD [...] 11 Refills, Maintenance, 12/30/22 8:20:00 EDT, Gel, [facility]/pharmacy #[id number], Partial fill upon patient request [...] 0 Refills, Maintenance, 05/15/23 16:39:00 EDT, Tablet, [facility]/pharmacy #[id number], Partial fill upon patient request [...] 3 Refills, Maintenance, 05/15/23 16:29:00 EDT, Tablet, [facility]/pharmacy #[id number], Partial fill upon patient request [...] Refills, Maintenance, 06/23/23 8:30:00 EDT, [facility], 151, cm, 06/15/23 13:55:00 EDT, Height, 62.6, kg, 07/29/21 13:46:00 EDT, Dry Weight Start Date: 06/23/23 Status: Ordered Problem List Condition Confirmation Course Effective Dates Status H ealth Status Informant Bipolar disorder in remission Confirmed Active Chronic post-traumatic stress disorder (PTSD) Confirmed Active Family history of gastric cancer Confirmed Active Generalized anxiety disorder with panic attacks Confirmed Active Left hand pain Confirmed Active 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
--- OUTSIDE RECORDS SUMMARY | 2024-02-08 09:42 | XMS_ITS | Continuity of Care Document ---
Author Organization [facility] Address [address] [place] [address], [address] [place] [address]- Care Team Providers Care Mushroom Sorter Grader Name Role Phone Al Clements MD, Tati Sharp Primary Care Physician [id number] Date(s): 07/29/21 - 08/28/21 [facility] [address] [facility], [address] [place] [address]- Attending Physician: Meme Jean Baptiste Admitting Physician: AdmtrMeme Referring Physician: Admtr, ArSudheer Allergies, Adverse Reactions, Alerts Substance Reaction Severity Status Contrast Dye Active Immunizations Given and Recorded Vaccine Date Status Refusal Reason tetanus/diphtheria/pertussis, acel(Tdap) 01/22/08 Given Medications albuterol albuterol, 2, puffs, Refills 0, Maintenance, 06/14/19 16:34:09 EDT, Compound Start Date: 06/14/19 Status: Ordered Flovent 110 mcg Inhaler HFA 2, puffs, Inhalation, 2 times a day, 1, 0, 0, 12/09/07 13:37:43, ADS OPPT, [address] [address], [id number] Start Date: 12/09/07 Status: Ordered Fluoxetine Capsule 60, mg, By Mouth, Daily, 30, 0, 0, 12/09/07 13:37:45, ADS OPPT, [address] [address], [id number] Start Date: 12/09/07 Status: Ordered Nexium Capsule 40, mg, By Mouth, 2 times a day, 30, 0, 0, 12/09/07 13:37:40, [address]S [address] [address], [id number]+006 Start Date: 12/09/07 Status: Ordered Remeron Tablet 15, mg, By Mouth, Daily, 30, 0, 0, 12/09/07 13:37:47, ADS [address] [address], [id number] Start Date: 12/09/07 Status: Ordered Seroquel Tablet 900, mg, By Mouth, Daily at bedtime, 30, 0, 0, 12/09/07 13:37:43, ADS [address] [address], [address] Start Date: 12/09/07 Status: Ordered tramadol 50 mg oral tablet 1 tablet = 50 mg, By Mouth, Every 4 hours, PRN Pain, # 18 tablet, 0 Refills, Maintenance Start Date: 01/21/11 Stop Date: 01/24/11 Status: Ordered Trazodone Tablet 200, mg, By Mouth, Daily at bedtime, 30, 0, 0, 12/09/07 13:37:42, May repeat x 1, ADS [address] [address], [address] Start Date: 12/09/07 Status: Ordered triamcinolone 0.1% topical cream 1 application, Topically, 3 times a day, # 30 Gm, 0 Refills, Maintenance, 03/06/21 13:35:00 EDT, Cream, [facility]/pharmacy #[id number], Partial fill upon patient request if the prescription is for a schedule II opioid drug., 1 application Topically 3 times a day,... Start Date: 03/06/21 Status: Ordered Trileptal Tablet 600, mg, By Mouth, 2 times a day, 250, mL, 0, 0, 12/09/07 13:37:49, ADS [address] [address], [id number] Start Date: 12/09/07 Status: Ordered ZyrTEC 10 mg oral tablet 1 tablet = 10 mg, By Mouth, Daily, # 30 tablet, 0 Refills, Maintenance, 04/25/21 12:13:00 EDT, [facility]t, [id number], Partial fill upon patient request if the prescription is for a schedule II opioid drug., 157.48, cm, 04/25/21 12:02:00 Jelani OSHEA. Start Date: 04/25/21 Status: Ordered Problem List Condition Effective Dates Status Health Status Inform ant Urticaria(Confirmed) Active Social History Social History Type Response Smoking Status Former smoker, quit more than 30 days ago entered on: 07/29/21 Sex
--- OUTSIDE RECORDS SUMMARY | 2024-02-08 09:42 | XMS_ITS | Continuity of Care Document ---
Author Organization [facility] Address [address] [place] [address]- Care Team Providers Care Newspaper Photographer Name Role Phone Melly Angel Primary Care Physician Encounter [facility] Date(s): 03/06/21 - 04/05/21 [facility] [address], [place] [address] Attending Physician: AdmMeme dow Admitting Physician: Admtr, Francis8 Referring Physician: Admtr, Ar8 Allergies, Adverse Reactions, Alerts Substance Reaction Severity Status Contrast Dye Active Immunizations Given and Recorded Vaccine Date Status Refusal Reason tetanus/diphtheria/pertussis, acel(Tdap) 01/22/08 Given Medications albuterol albuterol, 2, puffs, Refills 0, Maintenance, 06/14/19 16:34:09 EDT, Compound Start Date: 06/14/19 Status: Ordered Flovent 110 mcg Inhaler HFA 2, puffs, Inhalation, 2 times a day, 1, 0, 0, 12/09/07 13:37:43, ADS [address] [address], [id number] Start Date: 12/09/07 Status: Ordered Fluoxetine Capsule 60, mg, By Mouth, Daily, 30, 0, 0, 12/09/07 13:37:45, ADS [address] [address], [id number] Start Date: 12/09/07 Status: Ordered Nexium Capsule 40, mg, By Mouth, 2 times a day, 30, 0, 0, 12/09/07 13:37:40, ADS [address] [address], [id number] Start Date: 12/09/07 Status: Ordered Remeron Tablet 15, mg, By Mouth, Daily, 30, 0, 0, 12/09/07 13:37:47, [address] [address], [id number] Start Date: 12/09/07 Status: Ordered Seroquel Tablet 900, mg, By Mouth, Daily at bedtime, 30, 0, 0, 12/09/07 13:37:43, [address] [address], 144 Start Date: 12/09/07 Status: Ordered tramadol 50 mg oral tablet 1 tablet = 50 mg, By Mouth, Every 4 hours, PRN Pain, # 18 tablet, 0 Refills, Maintenance Start Date: 01/21/11 Stop Date: 01/24/11 Status: Ordered Trazodone Tablet 200, mg, By Mouth, Daily at bedtime, 30, 0, 0, 12/09/07 13:37:42, February repeat x 1, [address] [address], 144 Start Date: 12/09/07 Status: Ordered triamcinolone 0.1% topical cream 1 application, Topically, 3 times a day, # 30 Gm, 0 Refills, Maintenance, 03/06/21 13:35:00 EDT, Cream, [facility]/pharmacy #[id number], Partial fill upon patient request if the prescription is for a schedule II opioid drug., 1 application Topically 3 times a day,... Start Date: 03/06/21 Status: Ordered Trileptal Tablet 600, mg, By Mouth, 2 times a day, 250, mL, 0, 0, 12/09/07 13:37:49, [address] [address], [id number] Start Date: 12/09/07 Status: Ordered
--- OUTSIDE RECORDS SUMMARY | 2024-02-08 09:42 | XMS_ITS | Continuity of Care Document ---
Author Organization [facility] Address [address] [place] [address]- Care Team Providers Care Leadite Heater Name Role Phone Lobo Graham MD Primary Care Physician Encounter [id number] Date(s): 06/23/22 - 07/23/[address] [address]- Attending Physician: Admtr, Ar8 Admitting Physician: Admtr, Ar8 Referring Physician: Admtr, Ar8 Allergies, Adverse Reactions, [...] INHALATION DAILY Start Date: 03/19/22 Status: Ordered clonazePAM 0.5 mg oral tablet TOME BENJA TABLETA TODOS LOS D AL ACOSTARSE Start Date: 03/19/22 Status: Ordered D3 50 mcg (2000 intl units) oral capsule 1 capsule = 50 mcg, By Mouth, Daily, TAKE 1 CAPSULE BY MOUTH EVERY DAY, # 60 capsule, 3 Refills, 03/29/22 10:15:00 EDT, [facility]/pharmacy #[id number], 151, cm, 03/19/22 9:06:00 EDT, Height, 62.6, kg, 07/29/21 13:46:00 EDT, Dry Weight Start Date: 03/29/22 Status: Ordered diclofenac 1% topical gel 1 application, Topically, 4 times a day, para tratar inflammacion/ artritis en los dedos., # 100 Gm, 11 Refills, Maintenance, 06/23/22 11:15:00 EDT, Gel, [facility]/pharmacy #[id number], Partial fill upon patientrequest if the prescription is for a schedule II op... Start Date: 06/23/22 Status: Ordered doxepin 10 mg oral capsule 1 capsule = 10 mg, By Mouth, Daily at bedtime, # 30 capsule, 0 Refills, Maintenance, 03/19/22 9:32:00 EDT, Partial fill upon patient request if the prescription is for a schedule II opioid drug. Start Date: 03/19/22 Status: Ordered Dulera 100 mcg-5 mcg/inh inhalation aerosol TAKE 2 PUFF INHALATION EVERY 12 HOURS Start Date: 03/19/22 Status: Ordered duloxetine 30 mg oral enteric coated capsule 1 capsule = 30 mg, TAKE 1 CAPSULE BY MOUTH DAILY FOR 60 DAYS. Start Date: 03/19/22 Status: Ordered famotidine 20 mg oral tablet TOME BENJA TABLETA DOS VECES AL D A Start Date: 03/19/22 Status: Ordered Flovent 110 mcg Inhaler HFA 2, puffs, Inhalation, 2 times a day, 1, 0, 0, 12/09/07 13:37:43, ADS OPPTHS, [facility] [address] [place] [address], [id number] Start Date: 12/09/07 Status: Ordered gabapentin 600 mg oral tablet 1 tablet = 600 mg, By Mouth, Daily, # 90 tablet, 1 Refills, Maintenance, 03/19/22 9:53:00 EDT, Tablet, [facility]/pharmacy #[id number], Partial fill upon patient request if the prescription is for a schedule II opioid drug., 151, cm, 03/19/22 9:06:00 EDT, Height,... Start Date: 03/19/22 Status: Ordered lidocaine 4% topical film 1 patch, Topically, 2 times a day, do not leave patch on for more than 8 hours at a time, # 12 each, 1 Refills, Acute 04/24/23 16:03:00 EDT, 05/20/22 10:30:00 EDT, Film, [facility]/pharmacy #[id number], Partial fill upon patient request if the prescription is for... Start Date: 05/20/22 Stop Date: 04/24/23 Status: Ordered ondansetron 4 mg oral tablet, disintegrating 1 tablet = 4 mg, By Mouth, 2 times a day, PRN Nausea & Vomiting, anisha sea necesario para nausea, # 12 tablet, 3 Refills, Maintenance, 06/23/22 11:16:00 EDT, Tablet, [id number], Partial fill upon patient request if the prescription is for a mendez... Start Date: 06/23/22 Stop Date: 10/21/22 Status: Ordered QUEtiapine 100 mg oral tablet TOME DOS TABLETAS POR VIA ORAL TODOS LOS AGUILAR AL ACOSTARSE Start Date: 03/19/22 Status: Ordered triamcinolone 0.1% topical cream 1 application, Topically, 3 times a day, # 30 Gm, 0 Refills, Maintenance, 03/06/21 13:35:00 EDT, Cream, [id number], Partial fill upon patient request if the prescription is for a schedule II opioid drug., 1 application Topically 3 times a day,... Start Date: 03/06/21 Status: Ordered Ventolin HFA 108 mcg/inh inhalation aerosol with adapter 1 puffs, Inhalation, 4 times a day, PRN for wheezing, # 18 Gm, 0 Refills, Maintenance, 03/19/22 9:31:00 EDT, Aerosol, Partial fill upon patient request if the prescription is for a schedule II opioiddrug. Start Date: 03/19/22 Status: Ordered Vraylar 4.5 mg oral capsule TOME BENJA Khadra PSULA TODOS LOS D EN LA BREN DAYO Start Date: 03/19/22 Status: Ordered zolpidem 5 mg oral tablet TAKE 1 TABLET BY MOUTH EVERY OTHER DAY DIRECTED TAKE AT BEDTIME Start Date: 03/19/22 Status: Ordered Problem List Condition Confirmation Course Effective Dates Status H ealth Status Informant Bipolar disorder in remission Confirmed Active Chronic post-traumatic stress disorder (PTSD) Confirmed Active Family history of gastric cancer Confirmed Active Generalized anxiety disorder with panic attacks Confirmed Active Left hand pain Confirmed Active Chronic nausea Confirmed Active Osteoarthritis of both hands Confirmed Active Urticaria Confirmed Active Social History Social History Type Response Smoking Status Former smoker, quit more than 30 days ago entered on: 07/29/21 Sex Patient Care team information Personnel Name: Lobo Graham MD Address: Address: [address] [place] [address]
--- OUTSIDE RECORDS SUMMARY | 2024-02-08 09:42 | XMS_ITS | Continuity of Care Document ---
Author Organization [facility] Address [address] [place] [address]- Care Team Providers Care Surface Boss Name Role Phone Melly Angel Primary Care Physician Encounter [facility] Date(s): 04/26/21 - 05/26/21 [facility] [address] [place], [place] [address] Attending Physician: Meme Jean Baptiste Admitting Physician: Admtr, Francis8 Referring Physician: Admtr, [...] day, 1, 0, 0, 12/09/07 13:37:43, ADS [address] [address], [id number] Start Date: 12/09/07 Status: Ordered Fluoxetine Capsule 60, mg, By Mouth, Daily, 30, 0, 0, 12/09/07 13:37:45, ADS [address] [address], [id number] Start Date: 12/09/07 Status: Ordered Nexium Capsule 40, mg, By Mouth, 2 times a day, 30, 0, 0, 12/09/07 13:37:40, ADS [address] [address], [id number] Start Date: 12/09/07 Status: Ordered Remeron Tablet 15, mg, By Mouth, Daily, 30, 0, 0, 12/09/07 13:37:47, [address] [address], [id number] Start Date: 12/09/07 Status: Ordered Seroquel Tablet 900, mg, By Mouth, Daily at bedtime, 30, 0, 0, 12/09/07 13:37:43, ADS [address] [address], [address] Start Date: 12/09/07 Status: Ordered tramadol 50 mg oral tablet 1 tablet = 50 mg, By Mouth, Every 4 hours, PRN Pain, # 18 tablet, 0 Refills, Maintenance Start Date: 01/21/11 Stop Date: 01/24/11 Status: Ordered Trazodone Tablet 200, mg, By Mouth, Daily at bedtime, 30, 0, 0, 12/09/07 13:37:42, May repeat x 1, [address] [address], [address] Start Date: 12/09/07 Status: Ordered triamcinolone 0.1% topical cream 1 application, Topically, 3 times a day, # 30 Gm, 0 Refills, Maintenance, 03/06/21 13:35:00 EDT, Cream, [facility]/pharmacy #[id number], Partial fill upon patient request if the prescription is for a schedule II opioid drug., 1 application Topically 3 times a day,... Start Date: 03/06/21 Status: Ordered Trileptal Tablet 600, mg, By Mouth, 2 times a day, 250, mL, 0, 0, 12/09/07 13:37:49, ADS [address] [address], [id number] Start Date: 12/09/07 Status: Ordered ZyrTEC 10 mg oral tablet 1 tablet = 10 mg, By Mouth, Daily, # 30 tablet, 0 Refills, Maintenance, 04/25/21 12:13:00 EDT, Tablet, [id number], Partial fill upon patient request if the prescription is for a schedule II opioid drug., 157.48, cm, 04/25/21 12:02:00 Jelani OSHEA. Start Date: 04/25/21 Status: Ordered
--- OUTSIDE RECORDS SUMMARY | 2024-02-08 09:42 | XMS_ITS | Continuity of Care Document ---
Author Organization [facility] Address [address] [place] [address]- Care Team Providers Care Dentofacial Orthopedics Dentist Name Role Phone Lobo Graham MD Primary Care Physician [facility] [facility] Date(s): 07/28/22 - 08/27/22 [facility] [address] [place] [address]- Attending Physician: Meme Jean Baptiste Admitting Physician: AdmtrMeme Referring Physician: tr, Meme Allergies, Adverse Reactions, Alerts Substance Reaction Severity [...] 60 capsule, 3 Refills, 03/29/22 10:15:00 EDT, [id number], 151, cm, 03/19/22 9:06:00 EDT, Height, 62.6, kg, 07/29/21 13:46:00 EDT, Dry Weight Start Date: 03/29/22 Status: Ordered diclofenac 1% topical gel 1 application, Topically, 4 times a day, para tratar inflammacion/ artritis en los dedos., # 100 Gm, 11 Refills, Maintenance, 06/23/22 11:15:00 EDT, Gel, [facility]/pharmacy #[id number], Partial fill upon patientrequest if the [...] 1, 0, 0, 12/09/07 13:37:43, ADS OPPTHS, [facility] [address] [place] [address], [id number] Start Date: 12/09/07 Status: Ordered gabapentin 600 mg oral tablet 1 tablet = 600 mg, By Mouth, Daily, # 90 tablet, 1 Refills, Maintenance, 03/19/22 9:53:00 EDT, Tablet, [facility]/pharmacy #[id number], Partial fill upon patient request [...] 04/24/23 16:03:00 EDT, 05/20/22 10:30:00 EDT, Film, [facility]/pharmacy #[id number], Partial fill upon patient request if the prescription is for... Start Date: 05/20/22 Stop Date: 04/24/23 Status: Ordered ondansetron 4 mg oral tablet, disintegrating 1 tablet = 4 mg, By Mouth, 2 times a day, PRN Nausea & Vomiting, anisha sea necesario para nausea, # 12 tablet, 3 Refills, Maintenance, 06/23/22 11:16:00 EDT, Tablet, [facility]/pharmacy #[id number], Partial fill upon patient request if the prescription is for a mendez... Start Date: 06/23/22 Stop Date: 10/21/22 Status: Ordered pantoprazole 40 mg oral delayed release tablet 1 tablet = 40 mg, By Mouth, Daily, # 30 tablet, 4 Refills, Maintenance, 07/28/22 9:12:00 EDT, EC Tablet, 151, cm, 07/28/22 8:50:00 EDT, Height, 62.6, kg, 07/29/21 13:46:00 EDT, Dry Weight Start Date: 07/28/22 Status: Ordered Protonix 40 mg oral delayed release tablet 1 tablet = 40 mg, By Mouth, 2 times a day, # 60 tablet, 5 Refills, Maintenance, 08/12/22 12:00:00 EST, 151, cm, 07/28/22 8:50:00 EDT, Height, 62.6, kg, 07/29/21 13:46:00 EDT, Dry Weight Start Date: 08/12/22 Stop Date: 02/08/23 Status: Ordered QUEtiapine 100 mg oral tablet TOME DOS TABLETAS POR VIA ORAL TODOS LOS AGUILAR AL ACOSTARSE Start Date: 03/19/22 Status: Ordered triamcinolone 0.1% topical cream 1 application, Topically, 3 times a day, # 30 Gm, 0 Refills, Maintenance, 03/06/21 13:35:00 EDT, Cream, [id number], Partial fill upon patient request if the [...] Vraylar 4.5 mg oral capsule TOME BENJA C PSULA TODOS LOS D EN LA MA DAYO Start Date: 03/19/22 Status: Ordered Problem List Condition Confirmation Course Effective Dates Status H ealth Status Informant Bipolar disorder in remission Confirmed Active Chronic post-traumatic stress disorder (PTSD) Confirmed Active Family history of gastric cancer Confirmed Active Generalized anxiety disorder with panic attacks Confirmed Active Left hand pain Confirmed Active Chronic nausea Confirmed Active Obese class I Confirmed Active Osteoarthritis of both hands Confirmed Active Urticaria Confirmed Active Social History Social History Type Response Smoking Status Former smoker, quit more than 30 days ago entered on: 07/29/21 Sex Patient Care team information Care Team Personnel Name: Lobo Graham MD Position: [facility] Resident Member Role: PCP Address: Address: [address] [place] [address]- Care Team Related Persons Name: MARYLOU SEPULVEDA Address: home [address] [place] [address] Name: KYRIE RICO Address: home [address] [address]
--- OUTSIDE RECORDS SUMMARY | 2024-02-08 09:42 | XMS_ITS | Continuity of Care Document ---
Author Organization [facility] Address [address] [place] [address]- Care Team Providers Care Manager Wind Name Role Phone Melly Angel Primary Care Physician Encounter [facility] Date(s): 04/25/21 - 05/02/21 [facility] [address] [place], [place] [address] Attending Physician: Kermit Graf MD Referring Physician: Al Clements MD , Amy Allergies, Adverse Reactions, Alerts Substance Reaction Severity Status Contrast Dye Active Immunizations Given and Recorded Vaccine Date Status Refusal Reason tetanus/diphtheria/pertussis, acel(Tdap) 01/22/08 Given Medications albuterol albuterol, 2, puffs, Refills 0, Maintenance, 06/14/19 16:34:09 EDT, Compound Start Date: 06/14/19 Status: Ordered diphenhydrAMINE 25 mg oral capsule 2 capsule = 50 mg, By Mouth, Daily at bedtime, PRN as needed for itching, for 10 days, # 60 capsule, 0 Refills, Acute 05/05/21 12:14:00 EDT, 04/25/21 12:14:00 EDT, Capsule, [id number], Partial fill upon patient request if the prescription is f... Start Date: 04/25/21 Stop Date: 05/05/21 Status: Ordered Flovent 110 mcg Inhaler HFA 2, puffs, Inhalation, 2 times a day, 1, 0, 0, 12/09/07 13:37:43, ADS OPPTHS, [facility] [address] [place] [address], [id number] Start Date: 12/09/07 Status: Ordered Fluoxetine Capsule 60, mg, By Mouth, Daily, 30, 0, 0, 12/09/07 13:37:45, [address] [address], [id number] Start Date: 12/09/07 Status: Ordered Nexium Capsule 40, mg, By Mouth, 2 times a day, 30, 0, 0, 12/09/07 13:37:40, [address] [address], [id number] Start Date: 12/09/07 Status: Ordered Remeron Tablet 15, mg, By Mouth, Daily, 30, 0, 0, 12/09/07 13:37:47, [address] [address], [id number] Start Date: 12/09/07 Status: Ordered Seroquel Tablet 900, mg, By Mouth, Daily at bedtime, 30, 0, 0, 12/09/07 13:37:43, [address] [address], [address] Start Date: 12/09/07 Status: Ordered tramadol 50 mg oral tablet 1 tablet = 50 mg, By Mouth, Every 4 hours, PRN Pain, # 18 tablet, 0 Refills, Maintenance Start Date: 01/21/11 Stop Date: 01/24/11 Status: Ordered Trazodone Tablet 200, mg, By Mouth, Daily at bedtime, 30, 0, 0, 12/09/07 13:37:42, May repeat x 1, [address] [address], [address] Start Date: 12/09/07 Status: Ordered triamcinolone 0.1% topical cream 1 application, Topically, 3 times a day, # 30 Gm, 0 Refills, Maintenance, 03/06/21 13:35:00 EDT, Cream, [facility]/pharmacy #[id number], Partial fill upon patient request if the prescription is for a schedule II opioid drug., 1 application Topically 3 times a day,... Start Date: 03/06/21 Status: Ordered Trileptal Tablet 600, mg, By Mouth, 2 times a day, 250, mL, 0, 0, 12/09/07 13:37:49, ADS OPPTHS, [facility] [address] [place] [address], [id number]+[id number] Start Date: 12/09/07 Status: Ordered ZyrTEC 10 mg oral tablet 1 tablet = 10 mg, By Mouth, Daily, # 30 tablet, 0 Refills, Maintenance, 04/25/21 12:13:00 EDT, Tablet, [facility]/pharmacy #[id number], Partial fill upon patient request if the prescription is for a schedule II opioid drug., 157.48, cm, 04/25/21 12:02:00 EDT, Heig... Start Date: 04/25/21 Status: Ordered Vital Signs Most recent to oldest [Reference Range]: 1 Height 157.48 cm (04/25/21 12:02 PM) Oxygen Saturation [94-100 %] 100 % (04/25/21 12:02 PM) Pulse Rate [55-90 bpm] 50 bpm *L* (04/25/21 12:02 PM) Blood Pressure [90-138/55-84 mm Hg] 105/ 72mm Hg (04/25/21 12:02 PM) Respiratory Rate [16-30 br/min] 17 br/mi n (04/25/21 12:02 PM) Temperature [96.8-100.4 DegF] 97.8 DegF (04/25/21 12:02 PM) Mode of Delivery (Oxygen) Room air (04/25/21 12:02 PM) Blood pressure sites Arm, right (04/25/21 12:02 PM) Temperature Route Temporal (04/25/21 12:02 PM)
--- OUTSIDE RECORDS SUMMARY | 2024-02-08 09:42 | XMS_ITS | Continuity of Care Document ---
Author Organization [facility] Address [address] [place] [address]- Care Team Providers Care Windows Application Developer Name Role Phone Lobo Graham MD Primary Care Physician Encounter [facility] Date(s): 05/14/23 - 06/13/[address] [address] Attending Physician: Admtr, Ar8 Admitting Physician: Admtr, [...] 11 Refills, Maintenance, 12/30/22 8:20:00 EDT, Gel, [facility]/pharmacy #[id number], Partial fill upon [...] 0 Refills, Maintenance, 05/15/23 16:39:00 EDT, Tablet, [facility]/pharmacy #[id number], Partial fill upon [...] 3 Refills, Maintenance, 05/15/23 16:29:00 EDT, Tablet, [facility]/pharmacy #[id number], Partial fill upon [...] Confirmed Active Left hand pain Confirmed Active detention current use of antipsychotic medication Confirmed Active Chronic nausea Confirmed Active Occipital headache Confirmed Active Osteoarthritis of both hands Confirmed Active Urticaria Confirmed Active Social History Social History Type Response Smoking Status Former smoker, quit more than 30 days ago entered on: 07/29/21 Sex Patient Care team information Care Team Personnel Name: Lobo Graham MD Position: [facility] Resident Member Role: PCP Address: Address: [address] [place] [address]- Care Team Related Persons Name: MARYLOU SEPULVEDA Address: home [address] [place] [address] Name: KYRIE RICO Address: home [address] [address]
--- OUTSIDE RECORDS SUMMARY | 2024-02-08 09:42 | XMS_ITS | Continuity of Care Document ---
Author Organization [facility] Address [address] [place] [address]- Care Team Providers Care Early Childhood Education Instructor Name Role Phone Lobo Graham MD Primary Care Physician Encounter [facility] Date(s): 12/30/22 - 01/29/[address] [address]- Allergies, Adverse Reactions, Alerts Substance Reaction Severity [...] 11 Refills, Maintenance, 12/30/22 8:20:00 EDT, Gel, [facility]/pharmacy #[id number], Partial fill upon patient request if the prescription is for a schedule II opi... Start Date: 12/30/22 Status: Ordered FLUoxetine 20 mg oral capsule 20 mg, 1, capsule, TOME BENJA C PSULA TODOS LOS D EN LA BREN OSHEA (rx'd by ; Claudia Coronel) Start Date: 12/30/22 Status: Ordered lidocaine 4% topical film 1 patch, Topically, 2 times a day, do not leave patch on for more than 8 hours at a time, # 12 each, 1 Refills, Acute 04/24/23 16:03:00 EDT, 05/20/22 10:30:00 EDT, Film, [facility]/pharmacy #[id number], Partial fill upon patient request if the prescription is for... Start Date: 05/20/22 Stop Date: 04/24/23 Status: Ordered ondansetron 4 mg oral tablet, disintegrating 1 tablet = 4 mg, By Mouth, 2 times a day, PRN Nausea & Vomiting, anisha sea necesario para nausea, # 12 tablet, 3 Refills, Maintenance, 12/12/22 6:31:00 EST, Tablet, [facility]/pharmacy #[id number], Partial fill upon patient request if the prescription is for a sche... 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 Active Chronic nausea Confirmed Active Obese class I Confirmed Active Occipital headache Confirmed Active Osteoarthritis of both hands Confirmed Active Urticaria Confirmed Active Social History Social History Type Response Smoking Status Former smoker, quit more than 30 days ago entered on: 07/29/21 Sex Patient Care team information Care Team Personnel Name: Lobo Graham MD Position: [facility] Resident Member Role: PCP Address: Address: [address] [place] [address]- Care Team Related Persons Name: MARYLOU SEPULVEDA Address: home [address] [place] [address] Name: KYRIE RICO Address: home [address] [address]
--- OUTSIDE RECORDS SUMMARY | 2024-02-08 09:42 | XMS_ITS | Continuity of Care Document ---
Author Organization [facility] Address [address] [place] [address]- Care Team Providers Care Gauger Chief Name Role Phone Lobo Graham MD Primary Care Physician Encounter [facility] Date(s): 02/24/23 - 03/26/[address] [address]- Allergies, Adverse Reactions, Alerts Substance Reaction Severity [...] 11 Refills, Maintenance, 12/30/22 8:20:00 EDT, Gel, [facility]/pharmacy #[id number], Partial fill upon patient request [...] 04/24/23 16:03:00 EDT, 05/20/22 10:30:00 EDT, Film, [facility]/pharmacy #[id number], Partial fill upon patient request if the prescription is for... Start Date: 05/20/22 Stop Date: 04/24/23 Status: Ordered ondansetron 4 mg oral tablet, disintegrating 1 tablet = 4 mg, By Mouth, 2 times a day, PRN Nausea & Vomiting, anisha sea necesario para nausea, # 12 tablet, 3 Refills, Maintenance, 12/12/22 6:31:00 EST, Tablet, [facility]/pharmacy #[id number], Partial fill upon patient request [...] Confirmed Active Left hand pain Confirmed Active [facility] current use of antipsychotic medication Confirmed Active Chronic nausea Confirmed Active Obese class I Confirmed Active Occipital headache Confirmed Active Osteoarthritis of both hands Confirmed Active Urticaria Confirmed Active Social History Social History Type Response Smoking Status Former smoker, quit more than 30 days ago entered on: 07/29/21 Sex Patient Care team information Care Team Personnel Name: Lobo Graham MD Position: [facility] Resident Member Role: PCP Address: Address: [address] [place] [address]- Care Team Related Persons Name: MARYLOU SEPULVEDA Address: home [address] [place] [address] Name: KYRIE RICO Address: home [address] [address]
--- OUTSIDE RECORDS SUMMARY | 2024-02-08 09:42 | XMS_ITS | Continuity of Care Document ---
Author Organization [facility] Address [address] [place] [address]- Care Team Providers Care B2B Appointment Setter Name Role Phone Lobo Graham MD Primary Care Physician [place] [facility] [place](s[place] 10/21/23 - 11/26/[address] [address]- Attending Physician: Not on Staff, Attending MD [...] 11 Refills, Maintenance, 12/30/22 8:20:00 EDT, Gel, [facility]/pharmacy #[id number], Partial fill upon patient request if [...] 0 Refills, Maintenance, 05/15/23 16:39:00 EDT, Tablet, [facility]/pharmacy #[id number], Partial fill upon patient request if the prescription is for a schedule II opioid drug., 151, cm, 05/15/23 15:30:00 EDT, Height,... Start Date: 05/15/23 Status: Ordered ondansetron 4 mg oral tablet, disintegrating 1 tablet = 4 mg, By Mouth, 3 times a day, PRN Nausea & Vomiting, anisha sea necesario para nausea, # 30 tablet, 3 Refills, Maintenance, 05/15/23 16:29:00 EDT, Tablet, [facility]/pharmacy #[id number], Partial fill upon patient request if [...] Refills, Maintenance, 06/23/23 8:30:00 EDT, [id number], 151, cm, 06/15/23 13:55:00 EDT, Height, 62.6, kg, 07/29/21 13:46:00 EDT, Dry Weight Start Date: 06/23/23 Status: Ordered Problem List Condition Confirmation Course Effective Dates Status H ealth Status Informant Bipolar disorder in remission Confirmed Active Chronic post-traumatic stress disorder (PTSD) Confirmed Active Family history of gastric cancer Confirmed Active Generalized anxiety disorder with panic attacks Confirmed Active Left hand pain Confirmed Active 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
--- OUTSIDE RECORDS SUMMARY | 2024-02-08 09:42 | XMS_ITS | Continuity of Care Document ---
Author Organization [facility] Address [address] [place] [address]- Care Team Providers Care Evp Global Product Leadership Name Role Phone Lobo Graham MD Primary Care Physician [place] [facility] [place] - 12/26/[address] [address] Attending Physician: Admtr, Meme Admitting Physician: Admtr, Meme Referring Physician: Admtr, Ar8 Allergies, Adverse Reactions, [...] 11 Refills, Maintenance, 12/30/22 8:20:00 EDT, Gel, [facility]/pharmacy #[id number], Partial fill upon patient request if the prescription is for a schedule II opi... Start Date: 12/30/22 Status: Ordered FLUoxetine 20 mg oral capsule 20 mg, 1, capsule, TOME BENJA C PSULA TODOS LOS D EN LA MA DAYO (rx'd by ; Claudia Coronel) Start Date: 12/30/22 Status: Ordered meloxicam 15 mg oral tablet 1 tablet = 15 mg, By Mouth, Daily, # 30 tablet, 0 Refills, Maintenance, 05/15/23 16:39:00 EDT, Tablet, [facility]/pharmacy #[id number], Partial fill upon patient request if the prescription is for a schedule II opioid drug., 151, cm, 05/15/23 15:30:00 EDT, Height,... Start Date: 05/15/23 Status: Ordered ondansetron 4 mg oral tablet, disintegrating 1 tablet = 4 mg, By Mouth, 3 times a day, PRN Nausea & Vomiting, anisha sea necesario para nausea, # 30 tablet, 3 Refills, Maintenance, 05/15/23 16:29:00 EDT, Tablet, [facility]/pharmacy #[id number], Partial fill upon patient request if [...] Refills, Maintenance, 06/23/23 8:30:00 EDT, [facility], 151, cm, 06/15/23 13:55:00 EDT, Height, 62.6, kg, 07/29/21 13:46:00 EDT, Dry Weight Start Date: 06/23/23 Status: Ordered Problem List Condition Confirmation Course Effective Dates Status H ealth Status Informant Bipolar disorder in remission Confirmed Active Chronic post-traumatic stress disorder (PTSD) Confirmed Active Family history of gastric cancer Confirmed Active Generalized anxiety disorder with panic attacks Confirmed Active Left hand pain Confirmed Active alf current use of antipsychotic medication Confirmed Active [...] Resident Member Role: PCP Address: Address: [address] [place] [address]- Care Team Related Persons Name: MARYLOU SEPULVEDA Address: home [address] [place] [address] Name: KYRIE RICO Address: home [address] [address]
--- OUTSIDE RECORDS SUMMARY | 2024-02-08 09:42 | XMS_ITS | Continuity of Care Document ---
Author Organization [facility] Address [address] [place] [address]- Care Team Providers Care Ironworker Foreman Name Role Phone Al Clements MD, Amy Primary Care Physician [place] [facility] [place] - 01/15/[address] [address] Attending Physician: AdmtrMeme Admitting Physician: Admtr, Meme Referring Physician: Admtr, [...] day, 1, 0, 0, 12/09/07 13:37:43, ADS [address] [address], [id number] Start Date: 12/09/07 Status: Ordered Fluoxetine Capsule 60, mg, By Mouth, Daily, 30, 0, 0, 12/09/07 13:37:45, ADS [address] [address], [id number] Start Date: 12/09/07 Status: Ordered Nexium Capsule 40, mg, By Mouth, 2 times a day, 30, 0, 0, 12/09/07 13:37:40, ADS [address] [address], [id number] Start Date: 12/09/07 Status: Ordered Remeron Tablet 15, mg, By Mouth, Daily, 30, 0, 0, 12/09/07 13:37:47, [address] [address], [id number] Start Date: 12/09/07 Status: Ordered Seroquel Tablet 900, mg, By Mouth, Daily at bedtime, 30, 0, 0, 12/09/07 13:37:43, ADS [address] [address], [address] Start Date: 12/09/07 Status: Ordered tramadol 50 mg oral tablet 1 tablet = 50 mg, By Mouth, Every 4 hours, PRN Pain, # 18 tablet, 0 Refills, Maintenance Start Date: 01/21/11 Stop Date: 01/24/11 Status: Ordered Trazodone Tablet 200, mg, By Mouth, Daily at bedtime, 30, 0, 0, 12/09/07 13:37:42, May repeat x 1, [address] [address], [address] Start Date: 12/09/07 Status: Ordered triamcinolone 0.1% topical cream 1 application, Topically, 3 times a day, # 30 Gm, 0 Refills, Maintenance, 03/06/21 13:35:00 EDT, Cream, [facility]/pharmacy #[id number], Partial fill upon patient request if the prescription is for a schedule II opioid drug., 1 application Topically 3 times a day,... Start Date: 03/06/21 Status: Ordered Trileptal Tablet 600, mg, By Mouth, 2 times a day, 250, mL, 0, 0, 12/09/07 13:37:49, ADS [address] [address], [id number] Start Date: 12/09/07 Status: Ordered ZyrTEC 10 mg oral tablet 1 tablet = 10 mg, By Mouth, Daily, # 30 tablet, 0 Refills, Maintenance, 04/25/21 12:13:00 EDT, Tablet, [facility]/pharmacy #[id number], Partial fill upon patient request [...]
--- OUTSIDE RECORDS SUMMARY | 2024-02-08 09:42 | XMS_ITS | Continuity of Care Document ---
Author Organization [facility] Address [address] [place] [address]- Care Team Providers Care Contracts Specialist Name Role Phone Melly Angel Primary Care Physician [place] [facility] [place] 04/[place] 05/03/21 [facility] [address] [place] [address]- Encounter Diagnosis Tongue irritation(Discharge Diagnosis) - 04/26/21 Attending Physician: Kermit rGaf MD Referring Physician: Melly Angel Allergies, Adverse Reactions, Alerts Substance Reaction Severity [...] 12:14:00 EDT, 04/25/21 12:14:00 EDT, [facility], [id number], Partial fill upon patient request if the prescription is f... Start Date: 04/25/21 Stop Date: 05/05/21 Status: Ordered Flovent 110 mcg Inhaler HFA 2, puffs, Inhalation, 2 times a day, 1, 0, 0, 12/09/07 13:37:43, ADS OPPTHS, [facility] [address] [place] [address], [id number] Start Date: 12/09/07 Status: Ordered Fluoxetine Capsule 60, mg, By Mouth, Daily, 30, 0, 0, 12/09/07 13:37:45, [address] [address], [id number] Start Date: 12/09/07 Status: Ordered Nexium Capsule 40, mg, By Mouth, 2 times a day, 30, 0, 0, 12/09/07 13:37:40, [address] [address], [id number] Start Date: 12/09/07 Status: Ordered Remeron Tablet 15, mg, By Mouth, Daily, 30, 0, 0, 12/09/07 13:37:47, [address] [address], [id number] Start Date: 12/09/07 Status: Ordered Seroquel Tablet 900, mg, By Mouth, Daily at bedtime, 30, 0, 0, 12/09/07 13:37:43, [address] [address], [address] Start Date: 12/09/07 Status: Ordered tramadol 50 mg oral tablet 1 tablet = 50 mg, By Mouth, Every 4 hours, PRN Pain, # 18 tablet, 0 Refills, Maintenance Start Date: 01/21/11 Stop Date: 01/24/11 Status: Ordered Trazodone Tablet 200, mg, By Mouth, Daily at bedtime, 30, 0, 0, 12/09/07 13:37:42, May repeat x 1, [address] [address], [address] Start Date: 12/09/07 Status: Ordered triamcinolone 0.1% topical cream 1 application, Topically, 3 times a day, # 30 Gm, 0 Refills, Maintenance, 03/06/21 13:35:00 EDT, Cream, [facility]/pharmacy #[id number], Partial fill upon patient request if the prescription is for a schedule II opioid drug., 1 application Topically 3 times a day,... Start Date: 03/06/21 Status: Ordered Trileptal Tablet 600, mg, By Mouth, 2 times a day, 250, mL, 0, 0, 12/09/07 13:37:49, ADS OPPTHS, [facility] [address] [place] [address], [id number]+006 Start Date: 12/09/07 Status: Ordered ZyrTEC 10 mg oral tablet 1 tablet = 10 mg, By Mouth, Daily, # 30 tablet, 0 Refills, Maintenance, 04/25/21 12:13:00 EDT, Tablet, [facility]/pharmacy #[id number], Partial fill upon patient request if the prescription is for a schedule II opioid drug., 157.48, cm, 04/25/21 12:02:00 EDT, Jelani. Start Date: 04/25/21 Status: Ordered Problem List Diagnosis Diagnosis Type Effective Dates Health Status Clinical Service Informant Tongue irritation Discharge Diagnosis 04/26/21 Vital Signs Most recent to oldest [Reference Range]: 1 Height 157.48 cm (04/26/21 12:00 PM) Pulse Rate [55-90 bpm] 59 bpm (04/26/21 12:00 PM) Blood Pressure [90-138/55-84 mm Hg] 110/ 63mm Hg (04/26/21 12:00 PM) Respiratory Rate [16-30 br/min] 18 br/mi n (04/26/21 12:00 PM) Temperature [96.8-100.4 DegF] 96.9 DegF (04/26/21 12:00 PM) Blood pressure sites Arm, right (04/26/21 12:00 PM) Temperature Route Temporal (04/26/21 12:00 PM)
--- OUTSIDE RECORDS SUMMARY | 2024-02-08 09:42 | XMS_ITS | Continuity of Care Document ---
Author Organization [facility] Address [address] [place] [address]- Care Team Providers Care Hydraulic Mechanic Name Role Phone Lobo Graham MD Primary Care Physician Encounter [facility] Date(s): 12/30/22 - 01/29/[address] [address]- Attending Physician: AdmMeme dow Admitting Physician: Admtr, Ar8 Referring Physician: Admtr, [...] 11 Refills, Maintenance, 12/30/22 8:20:00 EDT, [facility], [id number], Partial fill upon patient request [...] 04/24/23 16:03:00 EDT, 05/20/22 10:30:00 EDT, Film, [id number], Partial fill upon patient request if the prescription is for... Start Date: 05/20/22 Stop Date: 04/24/23 Status: Ordered ondansetron 4 mg oral tablet, disintegrating 1 tablet = 4 mg, By Mouth, 2 times a day, PRN Nausea & Vomiting, anisha sea necesario para nausea, # 12 tablet, 3 Refills, Maintenance, 12/12/22 6:31:00 EST, Tablet, [id number], Partial fill upon patient [...] Confirmed Active Left hand pain Confirmed Active intermediate current use of antipsychotic medication Confirmed Active Chronic nausea Confirmed Active Obese class I Confirmed Active Occipital headache Confirmed Active Osteoarthritis of both hands Confirmed Active Urticaria Confirmed Active Social History Social History Type Response Smoking Status Former smoker, quit more than 30 days ago entered on: 07/29/21 Sex Patient Care team information Care Team Personnel Name: Lobo Graham MD Position: [facility] Resident Member Role: PCP Address: Address: [address] [place] [address]- Care Team Related Persons Name: MARYLOU SEPULVEDA Address: home [address] [place] [address] Name: KYRIE RICO Address: home [address] [address]
--- OUTSIDE RECORDS SUMMARY | 2024-02-08 09:42 | XMS_ITS | Continuity of Care Document ---
Author Organization [facility] Address [address] [place] [address]- Care Team Providers Care Inpatient Nursing Aide Name Role Phone Al Clements MD, Tati Sharp Primary Care Physician [place] [facility] [place] - 01/15/[address] [address] Allergies, Adverse Reactions, Alerts Substance Reaction Severity Status Contrast Dye Active Immunizations Given and Recorded Vaccine Date Status Refusal Reason tetanus/diphtheria/pertussis, acel(Tdap) 01/22/08 Given Medications albuterol albuterol, 2, puffs, Refills 0, Maintenance, 06/14/19 16:34:09 EDT, Compound Start Date: 06/14/19 Status: Ordered Flovent 110 mcg Inhaler HFA 2, puffs, Inhalation, 2 times a day, 1, 0, 0, 12/09/07 13:37:43, ADS [address] [address], [id number] Start Date: 12/09/07 Status: Ordered Fluoxetine Capsule 60, mg, By Mouth, Daily, 30, 0, 0, 12/09/07 13:37:45, ADS OPPTHS, [address] [address], [id number] Start Date: 12/09/07 Status: Ordered Nexium Capsule 40, mg, By Mouth, 2 times a day, 30, 0, 0, 12/09/07 13:37:40, ADS [address] [address], [id number] Start Date: 12/09/07 Status: Ordered Remeron Tablet 15, mg, By Mouth, Daily, 30, 0, 0, 12/09/07 13:37:47, ADS [address] [address], [id number]+006 Start Date: 12/09/07 Status: Ordered Seroquel Tablet 900, mg, By Mouth, Daily at bedtime, 30, 0, 0, 12/09/07 13:37:43, [address] [address], [address] Start Date: 12/09/07 Status: Ordered tramadol 50 mg oral tablet 1 tablet = 50 mg, By Mouth, Every 4 hours, PRN Pain, # 18 tablet, 0 Refills, Maintenance Start Date: 01/21/11 Stop Date: 01/24/11 Status: Ordered Trazodone Tablet 200, mg, By Mouth, Daily at bedtime, 30, 0, 0, 12/09/07 13:37:42, May repeat x 1, [address] [address], [address] Start Date: 12/09/07 Status: Ordered triamcinolone 0.1% topical cream 1 application, Topically, 3 times a day, # 30 Gm, 0 Refills, Maintenance, 03/06/21 13:35:00 EDT, Cream, [facility]/pharmacy #[id number], Partial fill upon patient request if the prescription is for a schedule II opioid drug., 1 application Topically 3 times a day,... Start Date: 03/06/21 Status: Ordered Trileptal Tablet 600, mg, By Mouth, 2 times a day, 250, mL, 0, 0, 12/09/07 13:37:49, ADS [address] [address], [id number] Start Date: 12/09/07 Status: Ordered ZyrTEC 10 mg oral tablet 1 tablet = 10 mg, By Mouth, Daily, # 30 tablet, 0 Refills, Maintenance, 04/25/21 12:13:00 EDT, [facility], [id number], Partial fill upon patient request if the prescription is for a schedule II opioid drug., 157.48, cm, 04/25/21 12:02:00 EDT, Heig... Start Date: 04/25/21 Status: Ordered Problem List Condition Effective Dates Status Health Status Inform ant Urticaria(Confirmed) Active Social History Social History Type Response Smoking Status Former smoker, quit more than 30 days ago entered on: 07/29/21 Sex
--- OUTSIDE RECORDS SUMMARY | 2024-02-08 09:42 | XMS_ITS | Continuity of Care Document ---
Author Organization [facility] Address [address] [place] [address]- Care Team Providers Care Shadowgraph Scale Operator Name Role Phone Lobo Graham MD Primary Care Physician Encounter [facility] Date(s): 07/16/23 - 08/15/[address] [address]- Allergies, Adverse Reactions, Alerts Substance Reaction Severity [...] 2000 intl units oral capsule See Instructions, TOMRichard 1 CAPSULA POR VIA ORAL A DIARIO, # 90 capsule, 2 Refills, Maintenance, 06/23/23 8:30:00 EDT, [facility], 151, cm, 06/15/23 13:55:00 EDT, Height, 62.6, kg, 07/29/21 13:46:00 EDT, Dry Weight Start Date: 06/23/23 Status: Ordered Problem List Condition Confirmation Course Effective Dates Status H ealth Status Informant Bipolar disorder in remission Confirmed Active Chronic post-traumatic stress disorder (PTSD) Confirmed Active Family history of gastric cancer Confirmed Active Generalized anxiety disorder with panic attacks Confirmed Active Left hand pain Confirmed Active penitentiary current use of antipsychotic medication Confirmed Active Chronic nausea Confirmed Active Obese class I Confirmed Active Occipital headache Confirmed Active Osteoarthritis of both hands Confirmed Active Urticaria Confirmed Active Social History Social History Type Response Smoking Status Former smoker, quit more than 30 days ago entered on: 07/29/21 Sex Patient Care team information Care Team Personnel Name: Lobo Graham MD Position: [facility] Resident Member Role: PCP Address: Address: [address] [place] [address]- Care Team Related Persons Name: MARYLOU SEPULVEDA Address: home [address] [place] [address] Name: KYRIE RICO Address: home [address] [address]
--- OUTSIDE RECORDS SUMMARY | 2024-02-08 09:43 | XMS_ITS | Continuity of Care Document ---
Author Organization [facility] Address [address] [place] [address]- Care Team Providers Care Lumber Sorter Name Role Phone Lobo Graham MD Primary Care Physician [place] [id number] Date(s): 03/19/22 - 04/18/[address] [address]- Attending Physician: AdmMeme dow Admitting Physician: Admtr, [...] Dry Weight Start Date: 03/29/22 Status: Ordered doxepin 10 mg oral capsule [...] day, 1, 0, 0, 12/09/07 13:37:43, [address]S [address] [address], [id number]+[id number] Start Date: 12/09/07 Status: Ordered Fluoxetine Capsule 60, mg, By Mouth, Daily, 30, 0, 0, 12/09/07 13:37:45, ADS [address] [address], [id number]+006 Start Date: 12/09/07 Status: Ordered gabapentin 600 mg oral tablet 1 tablet = 600 mg, By Mouth, Daily, # 90 tablet, 1 Refills, Maintenance, 03/19/22 9:53:00 EDT, Tablet, [facility]/pharmacy #[id number], Partial fill upon patient request if the prescription is for a schedule II opioid drug., 151, cm, 03/19/22 9:06:00 EDT, Height,... Start Date: 03/19/22 Status: Ordered lidocaine 4% topical film 1 patch, Topically, 2 times a day, # 12 each, 1 Refills, Acute 05/20/22 10:30:00 EDT, 03/19/22 9:48:00 EDT, Film, [id number], Partial fill upon patient request if the prescription is for a schedule II opioid drug., 1 patch Topically 2 times a... Start Date: 03/19/22 Stop Date: 05/20/22 Status: Ordered ondansetron 4 mg oral tablet, disintegrating 1 tablet = 4 mg, By Mouth, Every 6 hours, PRN Nausea & Vomiting, # 12 tablet, 0 Refills, Maintenance, 03/19/22 9:33:00 EDT, Tablet, [facility]/pharmacy #[id number], Partial fill upon patient request if the prescription is for a schedule II opioid drug., 151, cm, 0... Start Date: 03/19/22 Status: Ordered QUEtiapine 100 mg oral tablet TOME DOS TABLETAS POR VIA ORAL TODOS LOS AGUILAR AL ACOSTARSE Start Date: 03/19/22 Status: Ordered Remeron Tablet 15, mg, By Mouth, Daily, 30, 0, 0, 12/09/07 13:37:47, [address]S [address] [address], [id number]+[id number] Start Date: 12/09/07 Status: Ordered triamcinolone 0.1% topical cream 1 application, Topically, 3 times a day, # 30 Gm, 0 Refills, Maintenance, 03/06/21 13:35:00 EDT, Cream, [facility]/pharmacy #[id number], Partial fill upon patient request if the prescription is for a schedule II opioid drug., 1 application Topically 3 times a day,... Start Date: 03/06/21 Status: Ordered Trileptal Tablet 600, mg, By Mouth, 2 times a day, 250, mL, 0, 0, 12/09/07 13:37:49, [address]S [address] [address], [id number] Start Date: 12/09/07 Status: Ordered Ventolin HFA 108 mcg/inh inhalation [...] [place] DAYO Start Date: 03/19/22 Status: Ordered zolpidem 5 mg oral tablet TAKE 1 TABLET BY MOUTH EVERY OTHER DAY DIRECTED TAKE AT BEDTIME Start Date: 03/19/22 Status: Ordered ZyrTEC 10 mg oral tablet 1 tablet = 10 mg, By Mouth, Daily, # 30 tablet, 0 Refills, Maintenance, 04/25/21 12:13:00 EDT, Tablet, [facility]/pharmacy #[id number], Partial fill upon patient request if the prescription is for a schedule II opioid drug., 157.48, cm, 04/25/21 12:02:00 EDT, Hefrancis... Start Date: 04/25/21 Status: Ordered Problem List Condition Effective Dates Status Health Status Inform ant Urticaria(Confirmed) Active Social History Social History Type Response Smoking Status Former smoker, quit more than 30 days ago entered on: 07/29/21 Sex
--- OUTSIDE RECORDS SUMMARY | 2024-02-08 09:43 | XMS_ITS | Continuity of Care Document ---
Author Organization [facility] Address [address] [place] [address]- Care Team Providers Care Woods Superintendent Name Role Phone Lobo Graham MD Primary Care Physician Encounter [facility] [place] Date(s): 12/02/22 - 01/01/[address] [address]- Allergies, Adverse Reactions, Alerts Substance Reaction Severity [...] 11 Refills, Maintenance, 12/30/22 8:20:00 EDT, Gel, [facility]/pharmacy #[id number], Partial fill upon patient request [...] 04/24/23 16:03:00 EDT, 05/20/22 10:30:00 EDT, Film, [facility]/pharmacy #[id number], Partial fill upon patient request if the prescription is for... Start Date: 05/20/22 Stop Date: 04/24/23 Status: Ordered ondansetron 4 mg oral tablet, disintegrating 1 tablet = 4 mg, By Mouth, 2 times a day, PRN Nausea & Vomiting, anisha sea necesario para nausea, # 12 tablet, 3 Refills, Maintenance, 12/12/22 6:31:00 EST, Tablet, [facility]/pharmacy #[id number], Partial fill upon patient request [...] Confirmed Active Left hand pain Confirmed Active director long term care current use of antipsychotic medication Confirmed Active Chronic nausea Confirmed Active Obese class I Confirmed Active Occipital headache Confirmed Active Osteoarthritis of both hands Confirmed Active Urticaria Confirmed Active Social History Social History Type Response Smoking Status Former smoker, quit more than 30 days ago entered on: 07/29/21 Sex Patient Care team information Care Team Personnel Name: Lobo Graham MD Position: [facility] Resident Member Role: PCP Address: Address: [address] [place] [address]- Care Team Related Persons Name: MARYLOU SEPULVEDA Address: home [address] [place] [address] Name: KYRIE RICO Address: home [address] [address]
--- OUTSIDE RECORDS SUMMARY | 2024-02-08 09:43 | XMS_ITS | Continuity of Care Document ---
Author Organization [facility] Address [address] [place] [address]- Care Team Providers Care Fishing Rod Marker Name Role Phone Lobo Graham MD Primary Care Physician En[place] [facility] [place] Date(s): 05/15/23 - 06/14/[address] [address]- Allergies, Adverse Reactions, Alerts Substance Reaction Severity [...] 11 Refills, Maintenance, 12/30/22 8:20:00 EDT, Gel, [facility]/pharmacy #[id number], Partial fill upon patient request if [...] 0 Refills, Maintenance, 05/15/23 16:39:00 EDT, Tablet, [facility]/pharmacy #[id number], Partial fill upon patient request if the prescription is for a schedule II opioid drug., 151, cm, 05/15/23 15:30:00 EDT, Height,... Start Date: 05/15/23 Status: Ordered ondansetron 4 mg oral tablet, disintegrating 1 tablet = 4 mg, By Mouth, 3 times a day, PRN Nausea & Vomiting, anisha sea necesario para nausea, # 30 tablet, 3 Refills, Maintenance, 05/15/23 16:29:00 EDT, Tablet, [facility]/pharmacy #[id number], Partial fill upon patient request if [...] Confirmed Active Left hand pain Confirmed Active long-term current use of antipsychotic medication Confirmed Active Chronic nausea Confirmed Active Occipital headache Confirmed Active Osteoarthritis of both hands Confirmed Active Urticaria Confirmed Active Social History Social History Type Response Smoking Status Former smoker, quit more than 30 days ago entered on: 07/29/21 Sex Patient Care team information Care Team Personnel Name: Lobo Graham MD Position: [facility] Resident Member Role: PCP Address: Address: [address] [place] [address]- Care Team Related Persons Name: MARYLOU SEPULVEDA Address: home [address] [place] [address] Name: KYRIE RICO Address: home [address] [address]
--- OUTSIDE RECORDS SUMMARY | 2024-02-08 09:43 | XMS_ITS | Continuity of Care Document ---
Author Organization [facility] Address [address] [place] [address]- Care Team Providers Care Horizontal Resaw Operator Name Role Phone Lobo Graham MD Primary Care Physician [place] [facility] [place] [id number] Date(s): 04/06/23 - 04/06/[address] [address] Discharge Disposition: A-D/C Home Attending Physician: Jenni Segal Admitting Physician: Jenni Segal Referring Physician: Jenni Segal Allergies, Adverse Reactions, Alerts Substance Reaction Severity [...] 11 Refills, Maintenance, 12/30/22 8:20:00 EDT, Gel, [facility]/pharmacy #[id number], Partial fill upon patient request [...] 04/24/23 16:03:00 EDT, 05/20/22 10:30:00 EDT, Film, [facility]/pharmacy #[id number], Partial fill upon patient request if the prescription is for... 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 Confirmed Active Chronic nausea Confirmed Active Obese class I Confirmed Active Occipital headache Confirmed Active Osteoarthritis of both hands Confirmed Active Urticaria Confirmed Active Social History Social History Type Response Smoking Status Former smoker, quit more than 30 days ago entered on: 07/29/21 Sex Patient Care team information Care Team Personnel Name: Lobo Graham MD Position: [facility] Resident Member Role: PCP Address: Address: [address] [place] [address]- Care Team Related Persons Name: MARYLOU SEPULVEDA Address: home [address] [place] [address] Name: KYRIE RICO Address: home [address] [place] [id number]
--- OUTSIDE RECORDS SUMMARY | 2024-02-08 09:43 | XMS_ITS | Continuity of Care Document ---
Author Organization [facility] Address [address] [place] [address]- Care Team Providers Care International Freight Forwarder Name Role Phone Lobo Graham MD Primary Care Physician [place] [facility] [place] 11/07/22 - 12/07/[address] [address]- Allergies, Adverse Reactions, Alerts Substance Reaction Severity [...] AL ACOSTARSE Start Date: 03/19/22 Status: Ordered diclofenac 1% topical gel 1 application, Topically, 4 times a day, para tratar inflammacion/ artritis en los dedos., # 100 Gm, 11 Refills, Maintenance, 06/23/22 11:15:00 EDT, Gel, [facility]/pharmacy #[id number], Partial fill upon patientrequest if [...] 1, 0, 0, 12/09/07 13:37:43, ADS OPPTHS, [facility] [address] [place] [address], [id number] Start Date: 12/09/07 Status: Ordered gabapentin 600 mg oral tablet 1 tablet = 600 mg, By Mouth, Daily, # 90 tablet, 1 Refills, Maintenance, 03/19/22 9:53:00 EDT, Tablet, [id number], Partial fill upon [...] 04/24/23 16:03:00 EDT, 05/20/22 10:30:00 EDT, Film, [facility]/pharmacy #[id number], Partial fill upon patient request if the prescription is for... Start Date: 05/20/22 Stop Date: 04/24/23 Status: Ordered ondansetron 4 mg oral tablet, disintegrating 1 tablet = 4 mg, By Mouth, 2 times a day, PRN Nausea & Vomiting, anisha sea necesario para nausea, # 12 tablet, 3 Refills, Maintenance, 06/23/22 11:16:00 EDT, Tablet, [facility]/pharmacy #[id number], Partial fill upon patient request [...] Refills, Maintenance, 03/06/21 13:35:00 EDT, Cream, [facility]/pharmacy #[id number], Partial fill upon patient request [...] DIARIO, # 90 capsule, 2 Refills, Maintenance, 10/08/22 18:19:00 EST, [id number], 151, cm, 07/28/22 8:50:00 EDT, Height, 62.6, kg, 07/29/21 13:46:00 EDT, Dry Weight Start Date: 10/08/22 Status: Ordered Vraylar 4.5 mg oral capsule [...] CENTER Resident Member Role: PCP Address: Address: [address] [place] [address]- Care Team Related Persons Name: MARYLOU SEPULVEDA Address: home [address] [place] [address] Name: KYRIE RICO Address: home [address] [address]
--- OUTSIDE RECORDS SUMMARY | 2024-02-08 09:43 | XMS_ITS | Continuity of Care Document ---
Author Organization [facility] Address [address] [place] [address]- Care Team Providers Care Bleacher Pulp Name Role Phone Lobo Graham MD Primary Care Physician Encounter [facility] [place] Date(s): 08/12/22 - 08/12/[address] [address] Discharge Disposition: A-D/C Home Attending Physician: Taco Vila MD Admitting Physician: Taco Vila MD Referring Physician: Taco Vila MD Allergies, Adverse Reactions, Alerts Substance Reaction [...] 60 capsule, 3 Refills, 03/29/22 10:15:00 EDT, [facility]/pharmacy #[id number], 151, cm, 03/19/22 9:06:00 EDT, Height, 62.6, kg, 07/29/21 13:46:00 EDT, Dry Weight Start Date: 03/29/22 Status: Ordered diclofenac 1% topical gel 1 application, Topically, 4 times a day, para tratar inflammacion/ artritis en los dedos., # 100 Gm, 11 Refills, Maintenance, 06/23/22 11:15:00 EDT, Gel, [facility]/pharmacy #[id number], Partial fill upon patientrequest [...] 1, 0, 0, 12/09/07 13:37:43, ADS OPPTHS, [facility] [address] [place] [address], [id number] Start Date: 12/09/07 Status: Ordered gabapentin 600 mg oral tablet 1 tablet = 600 mg, By Mouth, Daily, # 90 tablet, 1 Refills, Maintenance, 03/19/22 9:53:00 EDT, Tablet, [facility]/pharmacy #[id number], Partial [...] 3 Refills, Maintenance, 06/23/22 11:16:00 EDT, Tablet, [facility]/pharmacy #[id number], Partial [...] TOME DOS TABLETAS POR VIA ORAL TODOS JUAN DIEGO AGUILAR AL ACOSTARSE Start Date: 03/19/22 Status: [...] mg oral capsule TOME BENJA C PSULA TOAMANDA D EN LA MA DAYO Start Date: [...] both hands Confirmed Active Urticaria Confirmed Active Procedures Procedure Date Related Diagnosis Body Site Status Colonoscopy, flexible; diagn ostic, including collection of specimen(s) by brushing or washing, when performed (separate procedure) 08/12/22 Completed EGD - Esophagogastroduodenoscopy 08/12/22 Completed Vital Signs Most recent to oldest [Reference Range]: 1 2 3 Oxygen Saturation [94-100 %] 100 % (08/12/22 11:59 AM) 100 % (08/12/22 11:49 AM) 97 % (08/12/22 10:24 AM) Pulse Rate [55-90 bpm] 60 bpm (08/12/22 10:24 AM) Blood Pressure [90-138/55-84 mm Hg] 110/65mm Hg (08/12/22 11:59 AM) 92/62mm Hg (08/12/22 11:49 AM) 112/60mm Hg (08/12/22 10:24 AM) Respiratory Rate [16-30 br/min] 18 br/min (08/12/22 11:59 AM) 18 br/min (08/12/22 11:49 AM) 20 br/min (08/12/22 10:24 AM) Temperature [96.8-100.4 DegF] 97.5 DegF (08/12/22 10:24 AM) Liters per Minute 6 L/min (08/12/22 11:49 AM) Mode of Delivery (Oxygen) Room air (08/12/22 11:59 AM) Simple face mask (08/12/22 11:49 AM) Room air (08/12/22 10:24 AM) Blood pressure sites Arm, left (08/12/22 10:24 AM) Temperature Route Temporal (08/12/22 10:24 AM) Social History Social History Type Response Smoking Status Former smoker, quit more than 30 days ago entered on: 07/29/21 Sex Note * Yoanna Tariq RN: PERFORM Event Display: Discharge/Transfer Note Hospital Authored Date: [id number] Nursing Discharge Note Entered On: 08/12/2022 12:11 EST Performed On: 08/12/2022 12:11 EST by Yoanna Tariq RN Nursing Discharge Note 2 Discharge Time : 08/12/2022 12:25 EST Yoanna Tariq RN - 08/12/2022 12:25 EST Discharge Level of Care at Discharge : Home/Mcfp/Foster Care Patient Left Unit Via : Wheelchair Patient Accompanied Off Unit with : Responsible adult DC Instructions Provided & Signed by Pt : Yes Patient Understands D/C Instructions : Yes Patient Instructions Discharge Signed : Yes Did Pt have Specialty Bed or Wound Vac : No Yoanna Tariq RN - 08/12/2022 12:11 EST * Yoanna Tariq RN: PERFORM Event Display: Patient Education/Instruction Authored Date: [id number] Inpatient Adult Discharge Instructions [address] [id number] Name: SUSANA MENDES : 1965 Visit: 08/12/2022 09:32:00 Current Date: 08/12/2022 12:12 Account: [id number] Inpatient Adult Discharge Instructions We would like to thank you for allowing us to assist you with your healthcare needs. The following includes patient education materials and information regarding your injury/illness. Our entire staffstrives to provide an excellent experience for our patients and their families. PLEASE ENSURE YOU FOLLOW-UP PER THE INSTRUCTIONS BELOW! ?? YOUR OPINION IS IMPORTANT TO US! Please complete the survey you may receive by mail or email. Your feedback will be used to make improvements to the healthcare experiences of our patients and their families. Surveys are administered by [employer]. ?? If further treatment with your primary care physician or another doctor is recommended, it is important for you to keep the appointment. Call your primary care physician or return to the Emergency Department immediately if your condition worsens, fails to improve, or new symptoms develop. If you need to find a doctor, you can call [facility] for a referral at [phone] or toll free at [phone] or log in to [email or web address].. ?? You can view and manage your care through the patient portal or by using a health care rishabh of your choosing. The [employer] is a website that allows you to securely view your medical information including your hospital discharge summary, office visit summaries, medications and follow-up visits. You can also request appointments, renew medications, and request access to your medical information using a health care rishabh of your choosing, or just ask a question. You can enroll at [email or web address] or register during your next office visit. You have been discharged from [facility], Patient Care Unit: ENDO. If you have any questions regarding these instructions after you leave, please call us and we will be happy to assist you. [facility] Your Care Team Attending Physician Taco Vila MD Reason for Admission DYSPEPSIA CRC SC Tests Performed Below is a partial list of the tests performed during your hospitalization. You may have had other tests and procedures not included in this list. Please discuss all test results with your provider. Primary Care Provider Lobo Graham MD Advance Directive Health Care Proxy on File Yes - Health Care Proxy No qualifying data available. Discharge Vitals Respiratory Rate: 18 br/min Systolic Blood Pressure: 110 mm Hg Diastolic Blood Pressure: 65 mm Hg Oxygen Saturation: 100 % Studies Pending All tests and labs ordered during this hospital stay have been completed unless listed below. Please discuss all pending results with your provider listed above in these instructions. ?? No incomplete studies found What to do next Instructions From Your Doctor Discharge Orders You Need to Schedule the Following Appointments Follow Up with??Lobo Graham When??In 0 days Where: [address] [place] [address]- Business (1) Discharge Medications SUSANA MENDES :1965 Visit Date:08/12/2022 Medications: Please continue your medications until treatment is completed or stopped by your provider. Medications not listed below should be discontinued. Discuss any questions related to medications with your provider. What How Much When Why Instructions Next Dose Unchanged Albuterol (Ventolin HFA 108 mcg/ inh inhalation aerosol with adapter) 1 puff(s) Inhalation 4 times a day as needed for for wheezing Unchanged cariprazine (Vraylar 4.5 mg oral capsule) TOME BENJA C PSULA TODOS LOS D EN LA MA DAYO ?? Unchanged Cholecalciferol (D3 50 mcg (2000 intl units) oral capsule) 1 capsule Oral Daily TAKE 1 CAPSULE BY MOUTH EVERY DAY ?? Unchanged Clonazepam (clonazePAM 0.5 mg oral tablet) TOME BENJA TABLETA TODOS LOS D AL ACOSTARSE ?? Unchanged Diclofenac Topical (diclofenac 1% topical gel) 1 rishabh Topically 4 times a day para tratar inflammacion/ ??artritis en los dedos. ?? Unchanged Doxepin (doxepin 10 mg oral capsule) 1 capsule Oral Daily at Bedtime Unchanged Duloxetine (duloxetine 30 mg oral enteric coated capsule) 1 capsule TAKE 1 CAPSULE BY MOUTH DAILY FOR 60 DAYS. ?? Unchanged Famotidine (famotidine 20 mg oral tablet) TOME BENJA TABLETA DOS VECES AL D A ?? Unchanged Fluticasone (Flovent 110 mcg Inhaler HFA) 2 puff(s) Inhalation Twice a day Unchanged fluticasone-vilanterol (Breo Ellipta 200 mcg-25 mcg/ inh inhalation powder) INHALE UN SOPLIDO INHALATION DAILY ?? Unchanged formoterol-mometasone (Dulera 100 mcg-5 mcg/ inh inhalation aerosol) TAKE 2 PUFF INHALATION EVERY 12 HOURS ?? Unchanged Gabapentin (gabapentin 600 mg oral tablet) 1 tab(s) Oral Daily Unchanged Lidocaine Topical (lidocaine 4% topical film) 1 patch(es) Topically Twice a day do not leave patch on for more than 8 hours at a time ?? Unchanged Miscellaneous Rx (albuterol) 2 puff(s) Unchanged Ondansetron (ondansetron 4 mg oral tablet, disintegrating) 1 tab(s) Oral Twice a day as needed for Nausea & Vomiting Duration: 30 Days anisha sea necesario para nausea ?? Unchanged Pantoprazole (pantoprazole 40 mg oral delayed release tablet) 1 tab(s) Oral Daily Unchanged Quetiapine (QUEtiapine 100 mg oral tablet) TOME DOS TABLETAS POR VIA ORAL TODOS LOS AGUILAR AL ACOSTARSE ?? Unchanged Triamcinolone Topical (triamcinolone 0.1% topical cream) 1 rishabh Topically 3 times a day Urticaria Test Results Below is a partial list of the most recent Laboratory test results done prior to this discharge. You may have had other tests and procedures not included in this list. Please discuss all test resultswith your provider. Allergies (NKA means No Known Allergies) Contrast Dye Problems Active Problems??(9) Bipolar disorder in remission?? Chronic nausea?? Chronic post-traumatic stress disorder (PTSD)?? Family history of gastric cancer?? Generalized anxiety disorder with panic attacks?? Left hand pain?? Obese class I?? Osteoarthritis of both hands?? Urticaria?? Education Materials Below is the list of Educational Leaflet Providered with your Discharge Instructions. Surgery Medical Daystay Surgical Overnight Discharge Instructions?? Valuables and Belongings I fully understand and agree that [facility] accepts no responsibility for all my personal property including clothing, toilet articles, radios, jewelry, dentures, hearing aids, rings, money, or any other property that is in my possession or is brought to me after admission. I understand certain valuables may be placed in a hospital safe for a short period of time. I understand that the hospital is not liable for loss or damage due to accident, fire, or other natural occurrence while said property is in the safe. I accept full responsibility for any personal property that I keep with me, and will not hold the hospital responsible in case of loss or disappearance. I acknowledge that i have been encouraged to send valuables and belongings home. ?? Date for Pt to Sign Valuables/Belongings: 08/12/22 10:24:00 ?? Other Discharge Information ? Case Management Discharge Plan?? Discharge Plan?? Discharge Level of Care at Discharge: Home/Mcfp/Foster Care ?? Pulmonary Rehab Status?? Pulmonary Rehab Discharge Status?? Respiratory Rate: 18 br/min ? Common Emergency Awareness Tips IS IT A STROKE? Act FAST and Check for these signs: FACE Does the face look uneven? ARM Does one arm drift down? SPEECH Does their speech sound strange? TIME Call at any sign of stroke ?? Heart Attack Signs Chest discomfort: Most heart attacks involve discomfort in the center of the chest and lasts more than a few minutes, or goes away and comes back. It can feel like uncomfortable pressure, squeezing, fullness or pain. Discomfort in upper body: Symptoms can include pain or discomfort in one or both arms, back, neck, jaw or stomach. Shortness of breath: With or without discomfort. Other signs: Breaking out in a cold sweat, nausea, or lightheaded. Remember, MINUTES DO MATTER. If you experience any of these heart attack warning signs, call to get immediate medical attention! ?? Smoking can increase your chances of developing chronic health problems and can cause harmful effects to other family members in your house. If you smoke, you are strongly encouraged to quit. Please call [facility] at [phone] or [phone]) or log in to [email or web address] for referrals to smoking cessation programs. ?? The National Suicide Prevention Hotline is available 27/04 if you or someone you know needs to find a reason to keep living. By calling 4-711-745-Ultora (5246) you'll be connected to a skilled, trained counselor at a crisis center in your area. INPATIENT DISCHARGE INSTRUCTIONS SIGNATURE PAGE SUSANA MENDES Location:[facility] Registration Date and Time:08/12/2022 09:32 EST Primary Care Physician: Lobo Graham MD, I SUSANA MENDES, have received the above patient education materials/instructions and have verbalized understanding. If ambulance or transport services are being used I further acknowledge being given a choice of service. ?? If you need to contact me, please call me at this number: . Patient/Ophthalmic Assistant Name: Patient/Ophthalmic Assistant Signature: Relationship to Patient: Witness Name/Signature: Date: * Yoanna Tariq RN: PERFORM, SIGN, VERIFY Event Display: Patient Education Handout Authored Date: * Yoanna Tariq RN: PERFORM Event Display: Patient Education Leaflets Authored Date: Surgery Medical Daystay Surgical Overnight Discharge Instructions ?? 295 Medical Daystay/Surgical Overnight Discharge Instructions ? Since your coordination and judgment may be altered by medication and/or anesthesia, a responsible adult must drive you home from the hospital. ? If you have received medication for pain or sedation while under our care, you should not drive, operate machinery, drink alcohol, or sign any legal documents for 24 hours.?? You should have someone with you at home tonight. ? Remain at home the day of discharge.?? You may be up and about unless otherwise instructed by your physician. ? You may resume your daily prescription medication schedule.?? Any depressant medication should be avoided for 24 hours unless otherwise instructed by your surgeon or anesthesiologist. ? Call your physician for a follow-up appointment.? If you experience unusual or severe pain not relied by your pain medication, excessive bleedingor drainage, persistent nausea and vomiting, excessive swelling or redness, foul odor from incisionsite or fever over 100.6F, you need to call your physician. ? A follow-up phone call by a nurse will be made the day after your procedure.?? If you have stayed with us over night, you will not be receiving a follow-up phone call. ? Nausea and vomiting are a common side effect of prescription pain medication.?? We recommend that pills are not taken on an empty stomach.?? While taking any prescription pain medication you should not drive or drink alcohol. ? Patient Care team information Care Team Personnel Name: Lobo Graham MD Position: S Resident Member Role: PCP Address: Address: [address] [place] [address]- Care Team Related Persons Name: MARYLOU SEPULVEDA Address: home [address] [place] [address] Name: KYRIE RICO Address: home [address] [place] [id number]
--- OUTSIDE RECORDS SUMMARY | 2024-02-08 09:43 | XMS_ITS | Continuity of Care Document ---
Author Organization [facility] Address [address] [place] [address]- Care Team Providers Care Blanker Operator Name Role Phone Lobo Graham MD Primary Care Physician Encounter [facility] [place] Date(s): 05/29/23 - 06/28/[address] [address] Allergies, Adverse Reactions, Alerts Substance [...] 11 Refills, Maintenance, 12/30/22 8:20:00 EDT, Gel, [facility]/pharmacy #[id number], Partial fill upon patient request if the prescription is for a schedule II opi... Start Date: 12/30/22 Status: Ordered FLUoxetine 20 mg oral capsule 20 mg, 1, capsule, TOME BENJA C PSULA TODOS LOS D EN LA BREN DAYO (rx'd by ; Claudia Coronel) Start Date: 12/30/22 Status: Ordered meloxicam 15 mg oral tablet 1 tablet = 15 mg, By Mouth, Daily, # 30 tablet, 0 Refills, Maintenance, 05/15/23 16:39:00 EDT, Tablet, [facility]/pharmacy #[id number], Partial fill upon patient request [...] 3 Refills, Maintenance, 05/15/23 16:29:00 EDT, Tablet, [facility]/pharmacy #[id number], Partial fill upon patient request [...] Refills, Maintenance, 06/23/23 8:30:00 EDT, [id number], 151, cm, 06/15/23 13:55:00 EDT, Height, 62.6, kg, 07/29/21 13:46:00 EDT, Dry Weight Start Date: 06/23/23 Status: Ordered Problem List Condition Confirmation Course Effective Dates Status H ealth Status Informant Bipolar disorder in remission Confirmed Active Chronic post-traumatic stress disorder (PTSD) Confirmed Active Family history of gastric cancer Confirmed Active Generalized anxiety disorder with panic attacks Confirmed Active Left hand pain 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
--- OUTSIDE RECORDS SUMMARY | 2024-02-08 09:43 | XMS_ITS | Continuity of Care Document ---
Author Organization [facility] Address [address] [place] [address]- Care Team Providers Care Optimization Engineer Name Role Phone Lobo Graham MD Primary Care Physician Encounter [facility] Date(s): 06/15/23 - 07/15/[address] [address]- Allergies, Adverse Reactions, Alerts Substance Reaction Severity [...] Maintenance, 12/30/22 8:20:00 EDT, Gel, [facility]/pharmacy #[id number], Partial fill upon patient request if the prescription is for a schedule II opi... Start Date: 12/30/22 Status: Ordered FLUoxetine 20 mg oral capsule 20 mg, 1, capsule, TOME BEJNA C PSULA TOS LOS D EN LA BREN DAYO (rx'd by ; Claudia Coronel) Start Date: 12/30/22 Status: Ordered meloxicam 15 mg oral tablet 1 tablet = 15 mg, By Mouth, Daily, # 30 tablet, 0 Refills, Maintenance, 05/15/23 16:39:00 EDT, Tablet, [facility]/pharmacy #[id number], Partial fill upon patient request if [...] Maintenance, 05/15/23 16:29:00 EDT, Tablet, [facility]/pharmacy #[id number], Partial fill upon patient request if [...] Refills, Maintenance, 06/23/23 8:30:00 EDT, [id number], 151, cm, 06/15/23 13:55:00 EDT, Height, 62.6, kg, 07/29/21 13:46:00 EDT, Dry Weight Start Date: 06/23/23 Status: Ordered Problem List Condition Confirmation Course Effective Dates Status H ealth Status Informant Bipolar disorder in remission Confirmed Active Chronic post-traumatic stress disorder (PTSD) Confirmed Active Family history of gastric cancer Confirmed Active Generalized anxiety disorder with panic attacks Confirmed Active Left hand pain Confirmed Active senior living current use of antipsychotic medication Confirmed Active Chronic nausea Confirmed Active Obese class I Confirmed Active Occipital headache Confirmed Active Osteoarthritis of both hands Confirmed Active Urticaria Confirmed Active Social History Social History Type Response Smoking Status Former smoker, quit more than 30 days ago entered on: 07/29/21 Sex Patient Care team information Care Team Personnel Name: Lobo Graham MD Position: [facility] Resident Member Role: PCP Address: Address: [address] [place] [id number]- Care Team Related Persons Name: MARYLOU SEPULVEDA Address: home [address] [place] [address] Name: KYRIE RICO Address: home [address] [address]
== END 2024-02-08 09:54 | disposition home or self-care (01) ==
PROVIDERS: PCP Internal Medicine; Visit Provider Physician Assistant Surgical
DX: E66.3 Overweight (principal); Z68.27 Body mass index [BMI] 27.0-27.9, adult; Z90.3 Acquired absence of stomach [part of]; Z98.84 Bariatric surgery status
CPT/HCPCS: 99442

== ENCOUNTER 2024-06-01 10:12 | Outpatient (AMB) | payer OTHER, SELFPAY ==
--- NOTE | 2024-06-01 10:16 | MHC.OFFVISWM ---
VS Expanded 06/01/24 10:22 BP 122/64 Blood Pressure Location Rt brachial Blood Pressure Position Sitting Pulse 75 Pulse Source Pulse Oximeter Temp 96.7 F L Temperature Source Temporal Artery Scan Pulse Oximetry 98 Oxygen Delivery Method Room Air Height 5 ft 2 in Weight 147 lb BMI 26.9 Body Fat % 33.9 Body Fat Mass 49.8 Fat Free Mass 97.0 Visceral Fat Rating 8.0 Body Water % 46.7 Body Water Mass 68.6 Muscle Mass/Score 92.2 Basal Metabolic Rate/Score 1,316 Intake Visit Reasons: (OV) PO LSG 04/24/20 Allergies Iodinated Contrast Media [IV CONTRAST] Allergy (Intermediate, Verified 06/01/24 10:19) ANXIETY/TREMORE CT IV dye Allergy (Intermediate, Uncoded 12/23/23 11:07) Anaphylaxis FRUIT, SKINS Allergy (Intermediate, Uncoded 12/23/23 11:07) MOUTH ITCHING Medication List - Last Reconciled 06/01/24 by JOY Ramirez acetaminophen 500 mg PO Q4-6H PRN 30 days albuterol sulfate 90 mcg/actuation 1 inh inhalation Q6H PRN albuterol sulfate 90 mcg/actuation 2 inhalations inhalation Q6H PRN 30 days albuterol sulfate 2.5 mg (3 mL) inhalation Q6H PRN 30 days aspirin 325 mg PO DAILY azelastine 2 sprays intranasal BID 90 days calcium carbonate (Calcium 500) 500 mg PO BID cariprazine (Vraylar) 3 mg PO QAM cetirizine 10 mg PO DAILY cetirizine (Zyrtec) 10 mg PO DAILY 30 days cholecalciferol (vitamin D3) 50 mcg PO DAILY 90 days diphenhydramine HCl (Banophen) 50 mg PO BEDTIME PRN epinephrine IM DIRECTED estradiol (Yuvafem) 0 mcg vaginal fluticasone propionate 50 mcg/actuation 2 sprays intranasal DAILY 30 days mifvellrbnk-rootsvlya-jlvzlpcg 200-62.5-25 mcg (Trelegy Ellipta) 1 inh inhalation DAILY 30 days hydrocortisone 1% topical BID lidocaine 5% 3 patches topical DAILY loratadine 10 mg PO DAILY 30 days meloxicam 15 mg PO DAILY mometasone-formoterol 100-5 mcg/actuation (Dulera) 2 puffs inhalation Q12H 30 days montelukast (Singulair) 10 mg PO BEDTIME 30 days pzqyxbesypry-xsl-xnpx-FA-vit K 45 mg iron- 800 mcg-120 mcg (Bariatric Multivitamins) caps PO nebulizers As directed pantoprazole 0 mg PO pregabalin 100 mg PO BID 30 days quetiapine 100 mg PO BEDTIME sennosides (senna) 8.6 mg PO BEDTIME PRN 30 days sertraline 300 mg PO Q OTHER DAY PRN sucralfate 10 mL PO QID trazodone 25 mg (1/2 x 50 mg) PO BEDTIME PRN zolpidem 10 mg PO BEDTIME HPI Comments Details: This?is a?58?yo female who is s/p LSG 04/24/2020. Weight at last visit on 02/08/2024 was 150.8 pounds with a BMI of 27.6, weight today -3.8lbs.? No complaints of emesis, abdominal pain or reflux, or constipation. Sometimes has some nausea with solid foods. 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 Brother No problems noted. Brother No problems noted. Brother No problems noted. Sister No problems noted. Sister No problems noted. Sister No problems noted. Sister No problems noted. Son No problems noted. Daughter No problems noted. Family/Other Mental health disorder Substance use disorder Social History Housing: Apartment Alcohol intake: never Patient Tobacco Use Status: Former Tobacco user Tobacco use type: Cigarette Years Smoked: 19 e-Cigarette/Vaping Use: Never Used Second Hand Smoke Exposure: No service: No Current occupational status: unemployed Physical Exam Vital Signs: Last Vital Signs Temp 96.7 F L 06/01/24 10:22 Pulse 75 06/01/24 10:22 BP 122/64 06/01/24 10:22 Pulse Ox 98 06/01/24 10:22 Oxygen Delivery Method Room Air 06/01/24 10:22 BMI result Body Mass Index 26.9 Quality Reporting (2019) Adult ([facility] ) Smoking risk assessment performed?: Yes Patient Tobacco Use Status: Former Tobacco user Assessment & Plan Assessment & Plan (1) Overweight: Code(s): E66.3 - Overweight Category: Medical (2) S/P laparoscopic sleeve gastrectomy: Code(s): Z98.84 - Bariatric surgery status Category: Surgical Plan Pt will continue on same meal plan. She is limited in exercise due to pain, will try to do exercises that are comfortable for her at home. We discussed that progress would likely be slower due to limitation in exercise. Labs done in spring. RTC 3-4 months. Texted pt and encouraged her to reach out via text between visits with any concerns. I spent a total of 30 minutes reviewing/updating records, examining the patient and counseling the patient on weight management as detailed above.
[2024-06-01 10:22] VITALS: BP 122/64; PULSE 75; TEMP 35.9; O2SAT 98; BMI 26.9
== END 2024-06-01 10:50 | disposition home or self-care (01) ==
PROVIDERS: PCP Internal Medicine; Visit Provider Physician Assistant Surgical
DX: E66.3 Overweight (principal); Z98.84 Bariatric surgery status
CPT/HCPCS: 99214

== ENCOUNTER → 2024-06-01 10:12 | Outpatient (BNVA) | payer OTHER, SELFPAY | PROVIDERS: PCP Internal Medicine; Visit Provider Physician Assistant Surgical | DX: E66.3 Overweight (principal); Z71.3 Dietary counseling and surveillance; Z98.84 Bariatric surgery status; Z68.26 Body mass index [BMI] 26.0-26.9, adult | CPT/HCPCS: 99212 ==

== ENCOUNTER 2024-07-06 10:32 | Outpatient (AMB) | payer OTHER, SELFPAY ==
[2024-07-06 10:51] VITALS: BP 100/60; PULSE 71; O2SAT 98; BMI 26.8
--- NOTE | 2024-07-06 10:51 | A.OFFVIS_ITS ---
Vital Signs 07/06/24 10:51 Height 5 ft 2 in Weight 146 lb 9.718 oz BMI 26.8 BP 100/60 Blood Pressure Location Lt brachial Position Sitting Pulse 71 Pulse Source Pulse Oximeter Pulse Oximetry (%) 98 Oxygen Delivery Method Room Air Intake Visit Reasons: copd Superintendent System Operation Required: No Allergies Iodinated Contrast Media [IV CONTRAST] Allergy (Intermediate, Verified 07/06/24 10:53) ANXIETY/TREMORE CT IV dye Allergy (Intermediate, Uncoded 07/06/24 10:53) Anaphylaxis FRUIT, SKINS Allergy (Intermediate, Uncoded 07/06/24 10:53) MOUTH ITCHING HPI Comments Details: The patient is a 58-year-old woman with a known history of asthma in addition to allergies. Her respiratory symptoms have been difficult to control. She had been seen by Allergy and while she was there she had a spirometry done that resulted in her having significant laryngospasm is a and shortness of breath. She had to be transferred to the [facility] ER for further evaluation. There she had a chest x-ray and other blood work that all look pretty good. She was told that it was her anxiety she gets very annoyed about that because she has does not feel anxious. She does get a raspiness in her throat area. The inhalers are only partially helpful. She has been using Breo. Patient also has some postnasal drip. Denies any ongoing reflux disease. 10/07/2022 the patient is here for a pulmonary follow-up visit. The patient overall has been doing well. She continues on the Breo. Lately she has been noticing increasing chest tightness and shortness of breath even on the Breo. She has been having to use her rescue inhaler more often. Typically more than twice a week. We did talk about optimizing her respiratory therapy by switching over to Trelegy inhaler. She is agreeable to this at this time. We did review her pulmonary function studies that she had recently demonstrating no obstructive nor restrictive ventilatory defects. Overall normal studies. We also reviewed her last CT scan of the chest that she had back in [facility] in 2020 demonstrating no active or chronic interstitial changes and no worrisome pulmonary nodules documented. The patient does have significant allergies. She will be following up with her waterway traffic checker soon. Will make sure that she has a copy of her PFTs and also her recent CT scans so she is able to pursue further allergy shots. The patient does have significant allergies specially in the springtime and she is anxious about starting allergy shots prior to that in order to mediate some of those symptoms. 04/02/2023 the patient is here for a pulmonary follow-up visit. Overall the patient is doing well. She has responded well to the Trelegy inhaler. Unfo rtunately, she had to stop the allergy shots because of a cardiac issue. Although, she is on fairly well. She does continue her allergy medicine. She does complain deficiency I sent of the skin. Will go and start her on Singulair to optimize respiratory therapy and also go ahead and start her on Astelin to help with her allergies. The patient has not had any recent x-rays or imaging studies or breathing studies. Clinically the patient is doing well continue with the current therapy will follow-up in a year's time. 07/06/2024 the patient is here for a pulmonary follow-up visit. The patient overall has been doing well from a respiratory status. Unfortunately she has had a few deaths in the family recently and this has been very hard for her. She had to be [facility] in the [facility] for suicide ideations. She is better at this time though. She continues use her respiratory medications with good effect. She does have significant allergies and she does respond well to the antihistamine therapy and also to the singular. She also takes the Trelegy daily as prescribed. No recent imaging to review at this time. Clinically the patient is doing well she will continue the current therapy follow-up in a year's time. If the patient develops any worsening symptoms prior to that she will call for an earlier assessment. [facility] Medical History (Updated 07/06/24 @ 22:22 by Jl Santos MD) Allergies Left knee pain Fibromyalgia Insomnia due to mental condition Anxiety Mild depression Venous (peripheral) insufficiency Intestinal malabsorption following gastrectomy BMI 26.0-26.9,adult Back pain Constipation by delayed colonic transit Hypovitaminosis D Chronic allergic rhinitis COVID-19 Asthma Arthritis Anxiety Depression Surgical History History of surgery on extremity History of repair of hiatal hernia H/O blepharoplasty S/P laparoscopic sleeve gastrectomy Hx of carpal tunnel repair Hx of tubal ligation Hx of section Hx of abdominoplasty Family History Father Prostate cancer Mother No problems noted. Brother No problems noted. Brother No problems noted. Brother No problems noted. Sister No problems noted. Sister No problems noted. Sister No problems noted. Sister No problems noted. Son No problems noted. Daughter No problems noted. Family/Other Mental health disorder Substance use disorder Social History Housing: Apartment Alcohol intake: never Patient Tobacco Use Status: Former Tobacco user Tobacco use type: Cigarette Years Smoked: 19 e-Cigarette/Vaping Use: Never Used Second Hand Smoke Exposure: No service: No Current occupational status: unemployed Review of Systems Const Denies night sweats ENT Denies change in voice, Denies lip swelling, Denies mouth pain, Reports nasal congestion, Reports nasal discharge and Denies tongue swelling Card Denies chest pain Resp Reports cough and Reports wheezing GI Denies abdominal pain Musc Denies no additional complaints Neuro Denies Neuro-related abnormal movements Psych Denies no additional complaints Russell/Lymph Denies easy bleeding and Denies lymphadenopathy Aller/Immun Denies lip swelling, Denies tongue swelling and Reports wheezing Physical Exam Vital Signs: Last Vital Signs Pulse 71 07/06/24 10:51 BP 100/60 07/06/24 10:51 Pulse Ox 98 07/06/24 10:51 Oxygen Delivery Method Room Air 07/06/24 10:51 BMI result Body Mass Index 26.8 Const General: alert Neck Neck: Yes normal visual inspection, Yes full ROM and Yes no lymphadenopathy Chest Chest palpation & inspection: normal inspection of the chest Resp Auscultation: diminished lung sounds Cardio Rate: regular rate Rhythm: regular rhythm Heart sounds: S1 normal heart sound present and S2 normal heart sound present GI Palpation (GI): Soft to palpation and nontender Auscultation: normal bowel sounds Skin General skin exam: rashes and/or lesions noted Quality Reporting (2019) Adult ([facility] ) Smoking risk assessment performed?: Yes Patient Tobacco Use Status: Former Tobacco user Assessment & Plan Assessment & Plan (1) Asthma: Code(s): J45.909 - Unspecified asthma, uncomplicated Category: Medical Qualifiers: Asthma complication type: uncomplicated Asthma persistence: persistent Asthma severity: moderate Qualified Code(s): J45.40 - Moderate persistent asthma, uncomplicated (2) Chronic allergic rhinitis: Code(s): J30.9 - Allergic rhinitis, unspecified Category: Medical (3) Allergies: Code(s): T78.40XA - Allergy, unspecified, initial encounter Category: Medical Qualifiers: Encounter type: subsequent encounter Qualified Code(s): T78.40XD - Allergy, unspecified, subsequent encounter Plan continue Trelegy LIA as needed re-refer to allergy for ?allergy shots continue zyrtec singulair Astelin nasal spray nasal rinsing F/U 10-12 months Orders: Referrals Allergy & Immunology Referral J45.909 - Unspecified asthma, uncomplicated, T78.40XA - Allergy, unspecified, initial encounter Medications: Refilled fluticasone propionate 50 mcg/actuation 2 sprays intranasal DAILY 30 days 15.8 mL 11RF albuterol sulfate 90 mcg/actuation 2 inhalations inhalation Q6H 30 days PRN 18 grams 12RF shortness of breath or wheezing J44.9 - Chronic obstructive pul monary disease, unspecified azelastine 2 sprays intranasal BID 90 days 90 mL 3RF J30.9 - Allergic rhinitis, unspecified, J45.40 - Moderate persistent asthma, uncomplicated cetirizine (Zyrtec) 10 mg PO DAILY 30 days 30 tabs 11RF montelukast (Singulair) 10 mg PO BEDTIME 30 days 30 tabs 11RF J45.909 - Unspecified asthma, uncomplicated idjkutbaark-zdgzwutfc-xcedcubt 200-62.5-25 mcg (Trelegy Ellipta) 1 inh inhalation DAILY 30 days 60 ea 12RF Discontinued mometasone-formoterol 100-5 mcg/actuation (Dulera) Discontinued Reason: Duplicate 2 puffs inhalation Q12H 30 days 13 grams 11RF Coding Level of Care Code Est Pt Level 4 (83782) Diagnoses Moderate persistent asthma without complication J45.40 Asthma complication type: uncomplicated Asthma persistence: persistent Asthma severity: moderate Chronic allergic rhinitis J30.9 Allergy, subsequent encounter T78.40XD Encounter type: subsequent encounter Time Spent (min) 16
== END 2024-07-06 11:12 | disposition home or self-care (01) ==
PROVIDERS: Visit Provider Hospitalist
DX: J45.40 Moderate persistent asthma, uncomplicated (principal); J30.9 Allergic rhinitis, unspecified; T78.40XD Allergy, unspecified, subsequent encounter
CPT/HCPCS: 99214

== ENCOUNTER → 2024-07-06 10:32 | Outpatient (BNVA) | payer OTHER, SELFPAY | PROVIDERS: Visit Provider Hospitalist | DX: J45.40 Moderate persistent asthma, uncomplicated (principal); J30.9 Allergic rhinitis, unspecified; T78.40XD Allergy, unspecified, subsequent encounter | CPT/HCPCS: 99212 ==

== ENCOUNTER 2025-07-04 10:32 | Outpatient (AMB) | payer OTHER, SELFPAY ==
--- OUTSIDE RECORDS SUMMARY | 2005-11-17 11:45 | XMS_ITS | Continuity of Care Document ---
Author Organization [facility] Address [address] [place] [address] Phone Care Team Providers Care Photovoltaic Power Systems Engineer Name Role Phone ASH MACHADO MD, VINH Unavailable Unavailable Advance Directives Directive Yes / No Effective Date File Name No Information Encounters Encounter Description Practice Location Reason(s) For Visit Diagnoses Date Provider Providers Copied on Encounter [facility], [address] [facility], [place], [place], [id number], [place] tel:[phone] [facility] No Information [facility]. [address] [place], [place], [id number] , [place]. tel: [phone] Referring Provider: Harvinder Belcher , [address] [place] [address], [address]. tel:[phone] Family History Family Member Type Diagnosis Age At Onset No Information Payers Payer name Insurance type Covered green party ID Authoriza tion(s) No Information Social History Type Description Quantity Date Captured Comments Sex Female Smoking Status No Information Chief Complaint And Reason For Visit No Information Reason For Referral Reason For Referral No Information History Of Present Illness Encounter Date Complaint History Of Prese nt Illness No Information Functional Status Date Functional Assessmen t No Information Instructions Date Instruction Additional Infor mation No Information Assessments Type Assessment Date No Information Patient Care Teams Name Effective Dates (start - stop) Status Members No Information
[2025-07-04 10:39] VITALS: BP 130/50; PULSE 85; O2SAT 100; BMI 27.8
--- NOTE | 2025-07-04 10:39 | MHC.OFFVIS ---
Vital Signs 07/04/25 10:39 Height 5 ft 2 in Weight 152 lb 1.903 oz BMI 27.8 BP 130/50 L Blood Pressure Location Rt brachial Position Sitting Pulse 85 Pulse Source Pulse Oximeter Pulse Oximetry (%) 100 Oxygen Delivery Method Room Air Intake Visit Reasons: COPD Allergies Iodinated Contrast Media (IV CONTRAST) Allergy (Intermediate, Verified 07/04/25 10:42) ANXIETY/TREMORE CT IV dye Allergy (Intermediate, Uncoded 07/06/24 10:53) Anaphylaxis FRUIT, SKINS Allergy (Intermediate, Uncoded 07/06/24 10:53) MOUTH ITCHING HPI Comments Details: The patient is a 59-year-old woman with a known history of asthma in addition to allergies. Her respiratory symptoms have been difficult to control. She had been seen by Allergy and while she was there she had a spirometry done that resulted in her having significant laryngospasm is a and shortness of breath. She had to be transferred to the [facility] ER for further evaluation. There she had a chest x-ray and other blood work that all look pretty good. She was told that it was her anxiety she gets very annoyed about that because she has does not feel anxious. She does get a raspiness in her throat area. The inhalers are only partially helpful. She has been using Breo. Patient also has some postnasal drip. Denies any ongoing reflux disease. 10/07/2022 the patient is here for a pulmonary follow-up visit. The patient overall has been doing well. She continues on the Breo. Lately she has been noticing increasing chest tightness and shortness of breath even on the Breo. She has been having to use her rescue inhaler more often. Typically more than twice a week. We did talk about optimizing her respiratory therapy by switching over to Trelegy inhaler. She is agreeable to this at this time. We did review her pulmonary function studies that she had recently demonstrating no obstructive nor restrictive ventilatory defects. Overall normal studies. We also reviewed her last CT scan of the chest that she had back in [facility] in 2020 demonstrating no active or chronic interstitial changes and no worrisome pulmonary nodules documented. The patient does have significant allergies. She will be following up with her engineering lecturer soon. Will make sure that she has a copy of her PFTs and also her recent CT scans so she is able to pursue further allergy shots. The patient does have significant allergies specially in the springtime and she is anxious about starting allergy shots prior to that in order to mediate some of those symptoms. 04/02/2023 the patient is here for a pulmonary follow-up visit. Overall the patient is doing well. She has responded well to the Trelegy inhaler. Unfortunately, she had to stop the allergy shots because of a cardiac issue. Although, she is on fairly well. She does continue her allergy medicine. She does complain deficiency I sent of the skin. Will go and start her on Singulair to optimize respiratory therapy and also go ahead and start her on Astelin to help with her allergies. The patient has not had any recent x-rays or imaging studies or breathing studies. Clinically the patient is doing well continue with the current therapy will follow-up in a year's time. 07/06/2024 the patient is here for a pulmonary follow-up visit. The patient overall has been doing well from a respiratory status. Unfortunately she has had a few deaths in the family recently and this has been very hard for her. She had to be [facility] for [facility] ideations. She is better at this time though. She continues use her respiratory medications with good effect. She does have significant allergies and she does respond well to the antihistamine therapy and also to the singular. She also takes the Trelegy daily as prescribed. No recent imaging to review at this time. Clinically the patient is doing well she will continue the current therapy follow-up in a year's time. If the patient develops any worsening symptoms prior to that she will call for an earlier assessment. 07/04/2025 the patient is here for pulmonary follow-up visit. Overall she is doing well from a respiratory status. She continues on the Trelegy 200. She is concerned with weight gain. She is concerned that the steroids in the inhaler could be worsening her body mass index. The patient is agreeable to increase the dose of the Trelegy 100. If she does develop any worsening symptoms on the lower dose she can always call we can always increase it. She continues use her allergy therapy and she is getting allergy shots at this time. If been affecting beneficial. She has had issues with angioedema due to significant food allergies. She will talk to her engineering lecturer regarding the use of Xolair. The patient follow-up in a year's time if she has any worsening respiratory symptoms or any other concerning symptoms she can always call for further recommendations. [facility] Medical History (Updated 07/06/24 @ 22:22 by Jl Santos MD) Allergies Left knee pain Fibromyalgia Insomnia due to mental condition Anxiety Mild depression Venous (peripheral) insufficiency Intestinal malabsorption following gastrectomy BMI 26.0-26.9,adult Back pain Constipation by delayed colonic transit Hypovitaminosis D Chronic allergic rhinitis COVID-19 Asthma Arthritis Anxiety Depression Surgical History History of surgery on extremity History of repair of hiatal hernia H/O blepharoplasty S/P laparoscopic sleeve gastrectomy Hx of carpal tunnel repair Hx of tubal ligation Hx of section Hx of abdominoplasty Family History Father Prostate cancer Mother No problems noted. Brother No problems noted. Brother No problems noted. Brother No problems noted. Sister No problems noted. Sister No problems noted. Sister No problems noted. Sister No problems noted. Son No problems noted. Daughter No problems noted. Family/Other Mental health disorder Substance use disorder Social History Housing: Apartment Alcohol intake: never Patient Tobacco Use Status: Former Tobacco user Tobacco use type: Cigarette Years Smoked: 19 e-Cigarette/Vaping Use: Never Used Second Hand Smoke Exposure: No service: No Current occupational status: unemployed Review of Systems Const Denies night sweats ENT Denies change in voice, Denies lip swelling, Denies mouth pain, Reports nasal congestion, Reports nasal discharge and Denies tongue swelling Card Denies chest pain Resp Reports cough and Reports wheezing GI Denies abdominal pain Musc Denies no additional complaints Neuro Denies Neuro-related abnormal movements Psych Denies no additional complaints Russell/Lymph Denies easy bleeding and Denies lymphadenopathy Aller/Immun Denies lip swelling, Denies tongue swelling and Reports wheezing Physical Exam Vital Signs: Last Vital Signs Pulse 85 07/04/25 10:39 BP 130/50 L 07/04/25 10:39 Pulse Ox 100 07/04/25 10:39 Oxygen Delivery Method Room Air 07/04/25 10:39 BMI result Body Mass Index 27.8 Const General: alert Neck Neck: Yes normal visual inspection, Yes full ROM and Yes no lymphadenopathy Chest Chest palpation & inspection: normal inspection of the chest Resp Auscultation: clear to auscultation bilaterally Cardio Rate: regular rate Rhythm: regular rhythm Heart sounds: S1 normal heart sound present and S2 normal heart sound present GI Palpation (GI): Soft to palpation and nontender Auscultation: normal bowel sounds Skin General skin exam: rashes and/or lesions noted Assessment & Plan Assessment & Plan (1) Asthma: Code(s): J45.909 - Unspecified asthma, uncomplicated Category: Medical Qualifiers: Asthma complication type: uncomplicated Asthma persistence: persistent Asthma severity: moderate Qualified Code(s): J45.40 - Moderate persistent asthma, uncomplicated (2) Chronic allergic rhinitis: Code(s): J30.9 - Allergic rhinitis, unspecified Category: Medical (3) Allergies: Code(s): T78.40XA - Allergy, unspecified, initial encounter Category: Medical Qualifiers: Encounter type: subsequent encounter Qualified Code(s): T78.40XD - Allergy, unspecified, subsequent encounter Plan continue Trelegy, decrease 200->100 LIA as needed started allergy shots ?Xolair continue zyrtec singulair Astelin nasal spray nasal rinsing F/U 10-12 months Medications: New ecyexdvgord-ijfqomvev-zevirehd 100-62.5-25 mcg (Trelegy Ellipta) 1 inh inhalation DAILY 60 ea 11RF 30 days J44.9 - Chronic obstructive pulmonary disease, unspecified Discontinued gmqperdtbet-xhkuqwedv-irypnqjk 200-62.5-25 mcg (Trelegy Ellipta) Discontinued Reason: Doctor's Order 1 inh inhalation DAILY 30 days 60 ea 12RF Coding Level of Care Code Est Pt Level 4 (42810) Complex EM visit Add On G2211 Diagnoses Moderate persistent asthma without complication J45.40 Asthma complication type: uncomplicated Asthma persistence: persistent Asthma severity: moderate Chronic allergic rhinitis J30.9 Allergy, subsequent encounter T78.40XD Encounter type: subsequent encounter Time Spent (min) 17
--- OUTSIDE RECORDS SUMMARY | 2025-07-04 11:43 | XMS_ITS | Clinical Summary ---
Author Organization Formerly [facility] Address [address] [place] [address] Care Team Providers Care Client Server Programmer Name Role Phone Pcp, No Primary Care Provider Unavailabl e Allergies Active Allergy Reactions Criticality Noted Date Comments Pollen Extract Itching Low 03/16/2018 Medications methocarbamol (ROBAXIN) 750 MG tablet Take 1 tablet (750 mg total) by mouth 4 times daily (every 6 hours) as needed for muscle spasms. 20 tablet 03/16/2018 Active Social History Tobacco Use Types Packs/Day Years Used Date Smoking Tobacco: Never Assessed Comments Unknown Sex and Gender Information Value Date Recorded Sex Assigned at Not on file Legal Sex Female 2:52 PM EDT Gender Identity Not on file Sexual Orientation Not on file Last Filed Vital Signs Vital Sign Reading Time Taken Comments Blood Pressure 143/81 03/16/2018 7:28 PM EDT Pulse 60 03/16/2018 7:28 PM EDT Temperature 36 C (96.8 F) 03/16/2018 7:28 PM EDT Respiratory Rate 16 03/16/2018 7:28 PM EDT Oxygen Saturation 98% 03/16/2018 7:28 PM EDT Inhaled Oxygen Concentration - - Weight - - Height - - Body Mass Index - - Plan of Treatment Health Maintenance Due Date Last Done Comments Hepatitis C Virus Screening 1965 HIV Screening 1978 DTaP/Tdap/Td Vaccines (1 - Tdap) 1984 Hepatitis B Vaccines (1 of 3 - 19+ 3-dose series) 07/05 Pap Smear (Ages 21-65) 1986 Mammogram 2005 Colonoscopy 2010 Pneumococcal Vaccines 50+ (1 of 1 - PCV) 2015 Zoster (Shingles) Vaccine (1 of 2) 2015 Influenza Vaccine 05/05/2025 COVID-19 Vaccine (2023- season) [address] [place] [address] TPL (AUTO/LIABILITY) Care Teams Client Server Programmer Relationship Specialty Start Date End Date Pcp, [address] [place] [address] PCP - General 03/18/19
--- OUTSIDE RECORDS SUMMARY | 2025-07-04 11:44 | XMS_ITS | Clinical Summary ---
Author Organization [facility] Address [address] [place] [address] Phone Care Team Providers Care Track Service Person Name Role Phone Lobo Graham MD Primary Care Pr ovider Allergies Active Allergy Reactions Criticality Noted Date Comments Bee Pollen Itching Low 03/16/2018 Iodinated Contrast Media Swelling 08/06/2018 Other Anaphylaxis High 10/22/2016 Apple and cranberries Pollen Extracts Itching,Runny nose 03/12/2010 Medications traMADoL (ULTRAM) 50 mg tablet TAKE 1 TABLET BY MOUTH EVERY 8 HOURS, NEEDED FOR PAIN 4 Active meloxicam (MOBIC) 15 mg tablet Take 1 Tablet by mouth. 3 Active ketotifen (ZADITOR) 0.025 % ophthalmic solution INSTILL 1 DROP INTO BOTH EYES ONCE A DAY FOR 1 MONTH 4 Active traZODone (DESYREL) 50 mg tablet TAKE 1-2 TABLET POR V A ORAL AL ACOSTARSE 4 Active risperiDONE (RisperDAL) 1 mg tablet TOME BENJA TABLETA TODOS LOS D AL ACOSTARSE 4 Active pantoprazole (PROTONIX) 40 mg EC tablet TOME BENJA TABLETA TODOS LOS D 3 Active prazosin (MINIPRESS) 1 mg capsule TOME BENJA C PSULA TODOS LOS D AL ACOSTARSE 3 Active busPIRone (BUSPAR) 5 mg tablet TOME BENJA TABLETA PILLO VECES AL D A 3 Active diclofenac (VOLTAREN) 1 % topical gel APPLY TOPICALLY 4 TIMES A DAY PARA TRATAR INFLAMMACION/ ARTRITIS EN LOS DEDOS. 3 Active FLUoxetine (PROzac) 20 mg capsule TOME BENJA C PSULA TODOS LOS D EN LA AR DAYO 3 Active naproxen (NAPROSYN) 500 mg tablet TAKE 500 MG BY MOUTH TWICE A DAY NEEDED FOR MODERATE PAIN SCALE 4-6 3 Active methocarbamoL (ROBAXIN) 750 mg tablet Take 1 Tablet by mouth 4 times daily as needed for Other (spasms; will cause sedation) for up to 30 doses. 3 Active cariprazine (Vraylar) 4.5 mg capsule TOME BENJA C PSULA TODOS LOS D EN LA AR DAYO 2 Active doxepin (SINEquan) 10 mg capsule Take 10 mg by mouth. 2 Active DULoxetine (CYMBALTA) [address] capsule 30 mg. 2 Active ondansetron ODT (ZOFRAN-ODT) 4 mg disintegrating tablet Take 4 mg by mouth. 2 Active pregabalin (LYRICA) 100 mg capsule TOME BENJA C PSULA DOS VECES AL D A CUANDO SEA NECESARIO PARA EL DOLOR 2 Active zolpidem (AMBIEN) 5 mg tablet TAKE 1 TABLET BY MOUTH EVERY OTHER DAY DIRECTED TAKE AT BEDTIME 2 Active gabapentin (NEURONTIN) 100 mg capsule Take 2 Capsules by mouth every evening. 2 Active QUEtiapine (SEROquel) 100 mg tablet 2 Active OXcarbazepine (TRILEPTAL) 300 mg/5 mL (60 mg/mL) suspension Take 600 mg by mouth. 8 Active clonazePAM (KlonoPIN) 0.5 mg tablet 2 Active cholecalciferol (VITAMIN D-3) 50 mcg (2,000 unit) capsule 2 Active diclofenac (Voltaren Arthritis Pain) 1 % topical gel APPLY TO LOWER BACK DAILY NEEDED 9 Active EPINEPHrine (EPIPEN) 0.3 mg/0.3 mL injectionIndicatio ns:Anaphylaxis, initial encounter Inject 0.3 mL (0.3 mg total) into the thigh if needed for anaphylaxis. 1 each 4 Active azelastine (ASTELIN) 137 mcg (0.1 %) nasal sprayIndications:N on-seasonal allergic rhinitis due to other allergic trigger,Moderate persistent asthma without complication Administer 2 sprays into each nostril 2 (two) times a day. Use in each nostril as directed 30 mL 3 4 Active cetirizine (ZyrTEC) 10 mg tabletIndications: Non-seasonal allergic rhinitis due to other allergic trigger,Moderate persistent asthma without complication Take 1 tablet (10 mg total) by mouth 1 (one) time each day. 90 tablet 3 4 Active montelukast (SINGULAIR) 10 mg tabletIndications: Non-seasonal allergic rhinitis due to other allergic trigger,Moderate persistent asthma without complication Take 1 tablet (10 mg total) by mouth at bedtime. 90 tablet 3 4 Active triamcinolone (KENALOG) 0.1 % cream Apply topically 2 (two) times a day. 30 g 5 026 Active fluticasone-umecli dinium-vilanterol (Trelegy Ellipta) 100-62.5-25 mcg inhalerIndications :Moderate persistent asthma without complication Inhale 1 puff (100 mcg total) by mouth 1 (one) time each day. Rinse mouth with water after use to reduce aftertaste and incidence of candidiasis. Do not swallow. 1 each 5 026 Active Ventolin HFA 90 mcg/actuation inhalerIndications :Moderate persistent asthma without complication Inhale 2 puffs by mouth every 6 (six) hours if needed for wheezing. 18 g 2 5 026 Active Active Problems Problem Noted Date Diagnosed Date Occipital headache 04/02/2023 Lumbar spondylosis 12/31/2022 Overview (2024): Last Assessment & Plan: Patient was seen approximately 3 months ago for low back pain, left buttock and leg pain. The plan was for her to try physical therapy and follow-up in the office. Her MRI was just over a-year-old but showed minimal degenerative changes including L5-S1 disc bulge. She is also been having issues with her left knee and foot, sees orthopedics. Subjectively she feels that her left foot is slightly weak. On today's visit she states she has been wearing a left knee brace which has actually helped her left knee pain and low back pain. She now rates her low back pain a 6/10. Unfortunately she has been waiting to get insurance approval for physical therapy, has not yet started PT, has been waiting for them to call her with an appointment. She recently saw Ortho for left plantar fasciitis and foot pain, their note mentions: Patient has chronic regional pain syndrome has been diagnosed to the left lower extremity and been unresolved even after seeing multiple specialists. Instructed patient that she most likely has some scar tissue residual from the original plantar fascia surgery and fibrosis of the remaining fascial band. Ms. Yordan Moon has seen some improvement in her low back pain since wearing a left knee brace, has not yet started PT so I gave her an updated physical therapy prescription but would like her to follow-up after PT is completed. If she has persistent back pain after PT we should get an updated MRI lumbar spine. Urticaria 12/30/2022 Osteoarthritis of both hands 12/30/2022 Left hand pain 12/30/2022 Class 1 obesity 12/30/2022 Chronic nausea 12/30/2022 Bipolar disorder in remission ([facility] V24) 12/04 Chronic midline low back pain without sciatica 0 05/13/2021 Elevated LFTs 10/10/2019 Hyperlipidemia 09/22/2019 Obstructive sleep apnea 09/13/2019 Overview (2024): [facility] Sleep [place] Polysomnogram: Date 09/08/2019; Wt #; BMI 36; SE 82%; SM 83%; REM 8%; RDI 14 (AHI 11), REM (RDI 53 - AHI 53), Central apneas 0; Obstructive apneas 2; Mixed apneas 0; hypopneas 62; RERAs 19; average oxygen saturation 91% (lowest 82% - without saturations <88% for 5% or more of study); PLMs 5. Prestudy ESS not given; 0/4 RLS symptoms. [facility] Polysomnogram treatment study. Date 11/17/2019. Wt 190#; BMI 31; SE 76 % SM 76 %; spent 25 % of the study in REM. On CPAP @ 10; RDI 0 (AHI 0), Central apneas 0; Obstructive apneas 0; Mixed apneas 0; hypopneas 0; RERAs 0; and, average oxygen saturation was 94%. For the entire study, PLMs ~11. Prestudy ESS 13; 4/4 RLS symptoms. - Obstructive Sleep Apnea - mild overall and severe in REM; mostly hypopneas; without sleep related hypoventilation by 2019 polysomnogram. Type 2 diabetes mellitus wit hout complications ([facility] V24, [facility] V28) 08/05/2019 Tear of medial meniscus of left knee 05/21/2018 Arthritis of knee 05/21/2018 Dysphagia 01/20/2018 Overview (2024): Small hiatal hernia EGD with Dr. Villa 01/05/18 Microcalcification of both breasts on mammogram 09/15/2017 Radiculitis, cervical 10/31/2010 Carpal tunnel syndrome 10/31/2010 Allergic rhinitis 11/13/2005 Agoraphobia with panic disorder 11/13/2005 Asthma 11/13/2005 Posttraumatic stress disorder 11/13/2005 Encounters Date Type Department Care Team Description 05/01/2025 11:25 AM EDT Office Visit Pulmonology - [address] [place] [id number] María Joseph NP Obstructive sleep apnea (Primary Dx); Moderate persistent asthma without complication from Last 3 Months Immunizations Immunization Administration Dates Next Due H1N1 Inj Preservative Free 11/20/2009 Influenza Quadravalent, MDCK , 0.5ml, preservative free (Flucelvax) 6mo and older 10/03/2021,08/10/2020,06/10/2019 Influenza trivalent, 0.5mL, preservative free (Fluarix; FluLaval; Fluzone) ages 6mo and older (Afluria) 3 years and older 06/02/2018,08/17/2015 Influenza, Unspecified 06/23/2022 [employer] SARS-CoV-2 COVID-19, mRNA, LNP-S, preservative free 02/25/2021,02/04/2021 Pneumococcal polysaccharide 23 valent (Pneumovax 23) 2yo and older 09/19/2019 Td Tetanus diptheria (Tdvax) 7yo and older 06/13,01/04/2008 Tdap Tetanus diptheria acell ular pertussis (Boostrix; Adacel) 7yo and older 01/22/2008 Zoster recombinant (Shingrix ) 19yo and older 12/11/2021 Surgical History Surgery Date Site/Laterality Comments TUBAL LIGATION PROCEDURE: HISTORICAL TUBAL LIGATION SECTION PROCEDURE: [place] DELIVERY ONLY CHOLECYSTECTOMY PROCEDURE: HISTORICAL CHOLECYSTECTOMY BREAST REDUCTION PROCEDURE: [place] BREAST REDUCTION OTHER SURGICAL HISTORY 07/2007 PROCEDURE: MAMMOGRAM OTHER SURGICAL HISTORY PROCEDURE: ---- OTHER ----; COMMENT: liposuction, arms, chin OTHER SURGICAL HISTORY PROCEDURE: ---- OTHER ----; COMMENT: abdominal wall plasty ESOPHAGOGASTRODUODENOSCOPY 12/23/2007 PROCEDURE: [place] EGD TRANSORAL BIOPSY SINGLE/MULTIPLE; COMMENT: Erosive antral/body gastritis-bx:Reactive gastropathy(no HP), r/o bright's esophagus-bx:Mild Chronic inflammation(no BE) ESOPHAGOGASTRODUODENOSCOPY 01/05/2018 PROCEDURE: [place] ESOPHAGOGASTRODUODENOSCOPY TRANSORAL DIAGNOSTIC; COMMENT: Dr. Allen Brown, nl COLONOSCOPY PROCEDURE: HISTORICAL COLONOSCOPY GASTRIC BYPASS 2019 PROCEDURE: [place] GASTRIC RSTCV W/BYP W/SM INT RCNSTJ LIMIT ABSRPJ FOOT SURGERY 2019 Left PROCEDURE: HISTORICAL FOOT SURGERY; COMMENT: Plantar Fascial and Distal Tarsal Tunnel Release, NEOS Medical History Medical History Date Comments Allergic rhinitis, cause unspecified 11/13/2005 DX:Allergic rhinitis, cause unspecified Agoraphobia with panic disorder 11/13/2005 DX:Agoraphobia with panic disorder Unspecified asthma(493.90) 11/13/2005 DX:Un specified asthma(493.90) Posttraumatic stress disorder 11/13/2005 DX :Posttraumatic stress disorder Elevated hemoglobin A1c 06/20/2019 DX:[place] jewels hemoglobin A1c Controlled type 2 diabetes m ellitus without complication ([facility] V24, [facility] V28) 08/05/2019 DX:Controlled type 2 diabete s mellitus without complication (HCC) Complex regional pain syndro me i of left lower limb DX:Complex regional pain syn drome i of left lower limb Family History Medical History Relation Name Comments Hypertension Father diabetes, eleva jewels cholesterol Prostate cancer Father Hypertension Mother asthma, catarac t, liver CA Stomach cancer Mother Breast cancer Other 1 Maternal cousin maternal co usin Stomach cancer Other 2 Maternal cousin maternal c ousin Throat cancer Other 3 Maternal cousin mat cousin Other: eye c Other 4 2nd cousin eye cancer? one eye removed, sched for removal of second Breast cancer Sister 1 has a chip in breast ? marker. pt not sure if actually was or has ca No Known Problems Sister 2 No Known Problems Sister 3 No Known Problems Sister 4 No Known Problems Sister 5 Blindness Neg Hx Glaucoma Neg Hx Macular degeneration Neg Hx Strabismus Neg Hx Relation Name Status Comments Father Alive Mother Other 1 Maternal cousin Other 2 Maternal cousin Other 3 Maternal cousin Other 4 Sister 1 Alive Sister 2 Alive Sister 3 Alive Sister 4 Alive Sister 5 Alive Social History Tobacco Use Types Packs/Day Years Used Date Smoking Tobacco: Former Cigarettes 0.5 16 0 10/05/1984 - 10/05/2000 Smokeless Tobacco: Never Tobacco Cessation:Counseling Given: Not Answered Alcohol Use Standard Drinks/Week Comments No 0 (1 standard drink = 0.6 oz pur e alcohol) Comments Unknown Sex and Gender Information Value Date Recorded Sex Assigned at Female 12/30/2024 8:39 PM EDT Legal Sex Female 4:29 AM EST Gender Identity Female 12/30/2024 8:39 PM EDT Sexual Orientation Straight 12/30/2024 8: 39 PM EDT Obstetrics History Last Filed Vital Signs Vital Sign Reading Time Taken Comments Blood Pressure 120/60 05/01/2025 11:10 AM EDT Pulse 74 05/01/2025 11:10 AM EDT Temperature 35.8 C (96.5 F) 05/01/2025 11:10 AM EDT Respiratory Rate 12 05/01/2025 11:10 AM EDT Oxygen Saturation 100% 05/01/2025 11:10 AM EDT Inhaled Oxygen Concentration - - Weight 65.4 kg (144 lb 3.2 oz) 05/01/2025 11:10 AM EDT Height 157.5 cm (5' 2 ) 05/01/2025 11:10 AM EDT Body Mass Index 26.37 05/01/2025 11:10 AM EDT Plan of Treatment Upcoming Encounters Date Type Department Care Team (Late st Contact Info) Description 08/01/2025 1:00 PM EDT Office Visit Pulmonology - [place] [address] [place] [address] María Joseph, [facility] [place] [address] Health Maintenance Due Date Last Done Comments Diabetes: Annual Foot Exam 1975 Diabetes: Annual Retina Eye Exam 1975 Hepatitis B Vaccines (1 of 3 - 19+ 3-dose series) 1984 Pneumococcal Vaccine: 50+ Years (2 of 2 - PCV) 09/19/2020 09/19/2019 Medicare Annual Wellness Visit 09/13/2022 Social Influencers of Health Screening 09/13/2022 Diabetes: Blood Sugar Control Test (HGBA1C) 05/18/2023 11/18/2022 Diabetes: Annual Urine Albumin-Creatinine Ratio (uACR) 11/18/2023 11/18/2022 Depression Screening 10/05/2024 Influenza Vaccine (#1) 2025 , 07/03/2022, 06/23/2022, Additional history exists Diabetes: Annual GFR (Glomerular Filtration Rate) 01/03/2026 01/03/2025, 12/30/2024, 11/18/2022 Breast Cancer Screening 01/17/2026 01/18/20 24, 01/17/2023, 12/16/2021, Additional history exists Cervical Cancer Screening: HPV 01/24/2026 01/24/2021 Cholesterol Screening (Lipid Panel) 11/18/2027 11/18/2022 Colorectal Cancer Screening: Colonoscopy 04/04/2029 04/04/2019 DTaP,Tdap,and Td Vaccines (4 - Td or Tdap) 06/13/2029 06/13/2019, 01/22/2008, 01/04/2008 RSV Immunization Adult Patients (1 - 1-dose 75+ series) 2040 HIV Screening Completed 06/16/2019 Hepatitis C Screening Completed 10/27/2019 Zoster Vaccines Completed 07/03/2022, 12/11/2021 COVID-19 Vaccine Completed 07/01/2024, , 10/03/2021, Additional history exists HIB Vaccines Aged Out No longer eligi ble based on patient's age to complete this topic HPV Vaccines Aged Out No longer eligi ble based on patient's age to complete this topic Hepatitis A Vaccines Aged Out No long er eligible based on patient's age to complete this topic IPV Vaccines Aged Out No longer eligi ble based on patient's age to complete this topic MMR Vaccines Aged Out No longer eligi ble based on patient's age to complete this topic Meningococcal ACWY Vaccine Aged Out N o longer eligible based on patient's age to complete this topic Meningococcal B Vaccine Aged Out No l onger eligible based on patient's age to complete this topic RSV Immunization Patients Under 20 months Aged Out No longer eligible based on patient's age to complete this topic Varicella Vaccines Aged Out No longer eligible based on patient's age to complete this topic Procedures Procedure Name Priority Date/Time Associated Diagnosis Comments COMPREHENSIVE METABOLIC PANEL STAT 01/03/2025 1:40 PM EDT [facility] SCREENING DIGITAL Routine 01/18/2024 1:02 PM EDT Encounter for screening mammogram for malignant neoplasm of breast URINE ALBUMIN CREATININE RATIO Routine 11/18/2022 HEMOGLOBIN A1C Routine 11/18/2022 LIPID PANEL Routine 11/18/2022 HPV Routine 01/24/2021 HEPATITIS C SCREENING Routine 10/27/2019 HIV SCREENING Routine 06/16/2019 COLONOSCOPY Routine 04/04/2019 from Last 3 Months or Most Recently Relevant to Health Maintenance Results * (ABNORMAL) Comprehensive metabolic panel (01/03/2025 1:40 PM EDT) Sodium 139 133 - 145 mmol/L LAB CHEMISTRY METHOD 01/03/2025 3:14 PM [facility] Potassium 4.2 3.5 - 5.5 mmol/L LAB CHEMISTRY METHOD 01/03/2025 3:14 PM [facility] Chloride 103 96 - 110 mmol/L LAB CHEMISTRY METHOD 01/03/2025 3:14 PM [facility] CO2 31 21 - 32 mmol/L LAB CHEMISTRY METHOD 01/03/2025 3:14 PM [facility] Anion Gap 5 3 - 11 LAB CHEMISTRY METHOD 01/03/2025 3:14 PM [facility] Glucose 87 70 - 100 mg/dL LAB CHEMISTRY METHOD 01/03/2025 3:14 PM [facility] BUN 14 5 - 25 mg/dL LAB CHEMISTRY METHOD 01/03/2025 3:14 PM [facility] Creatinine 0.67 0.50 - 1.10 mg/dL LAB CHEMISTRY METHOD 01/03/2025 3:14 PM [facility] eGFR 101 >=60 mL/min/1. 73m2 LAB CHEMISTRY METHOD 01/03/2025 3:14 PM [facility] Comment:Calculation based on the Chronic Kidney Disease Epidemiology Collaboration (CKD-EPI) equation refit without adjustment for race. BUN/Creatinine Ratio 20.9 LAB CHEMISTRY METHOD 01/03/2025 3:14 PM [facility] Calcium 9.5 8.5 - 10.5 mg/dL LAB CHEMISTRY METHOD 01/03/2025 3:14 PM [facility] AST (SGOT) 29 10 - 42 unit/L LAB CHEMISTRY METHOD 01/03/2025 3:14 PM [facility] ALT (SGPT) 123(H) 10 - 60 unit/L LAB CHEMISTRY METHOD 01/03/2025 3:14 PM [facility] Alkaline Phosphatase 95 42 - 121 unit/L LAB CHEMISTRY METHOD 01/03/2025 3:14 PM EDT [facility] Total Protein 7.2 6.0 - 8.0 g/dL LAB CHEMISTRY METHOD 01/03/2025 3:14 PM EDT [facility] Albumin 3.8 3.2 - 5.0 g/dL LAB CHEMISTRY METHOD 01/03/2025 3:14 PM EDT [facility] Total Bilirubin 0.4 0.0 - 1.4 mg/dL LAB CHEMISTRY METHOD 01/03/2025 3:14 PM EDT [facility] Blood Venous blood specimen / Unknown Venipuncture / Unknown 01/03/2025 1:40 PM EDT 01/03/2025 2:26 PM EDT us Leoncio Gonzalez DO LAB BLOOD ORDERABLES Final Result Performing Organization Address City/State/[facility] Co de Phone Number [facility] [address] [place] [address], * EFREN SCREENING DIGITAL (01/18/2024 1:02 PM EDT) Anatomical Region Laterality Modality Mammography 01/18/2024 10:4 4 AM EDT Narrative 01/18/2024 1:02 PM EDT [facility] Diagnostic Imaging Department [address] [place] [address] Patient: SUSANA CORLEY D.O.B./Age/Sex: 1965 - 58 - F Unit#: [id number] Location/Status: SPDIMAM/REG CLI Mnemonic/Ordering Site: DIGSC/SPMAM Ordering Physician: MISBAH BLAKELY MD [facility] Screening Digital - 01/18/24 - 1121 Report Status:Signed EXAM: [facility] Screening Digital EXAM DATE AND TIME: 01/18/2024 11:22 AM HISTORY: Annual screening COMPARISON: Multiple exams dating back to 2007 TECHNIQUE: Bilateral digital breast tomosynthesis was performed in the CC and MLO projections. Computer aided detection with [employer] 3D 3.1 was employed. TISSUE DENSITY: b. There are scattered areas of fibroglandular density. FINDINGS: No suspicious masses, grouped microcalcifications, or areas of architectural distortion are seen. The skin and vascularity are unremarkable. IMPRESSION: Stable mammographic appearance of the breasts. No evidence of malignancy is seen. A negative mammogram in the presence of a clinically suspicious palpable abnormality does not preclude the possibility of malignancy or alter the indications for biopsy. BI-RADS: Category 1: Negative RECOMMENDATION(S): 1: Routine screening mammogram BILATERAL in 1 year. 3341F, 7058F Dictating Physician: MIKE MATHIS MD Electronically Signed by: MIKE MATHIS MD Dic Date/Time: 01/18/24 1301 Sign date/Time: 01/18/24 1302 Procedure Note Mike Mathis MD - 05/23/2024 [facility] Diagnostic Imaging Department [address] [place] [address] Patient: SUSANA CORLEY /Age/Sex: 1965 - 58 - F Unit#: [id number] Location/Status: SPDIMAM/REG CLI Mnemonic[facility] Ordering Physician: MISBAH BLAKELY MD [facility] Screening Digital - 01/18/24 - 1121 Report Status:Signed EXAM: [facility] Screening Digital EXAM DATE AND TIME: 01/18/2024 11:22 AM HISTORY: Annual screening COMPARISON: Multiple exams dating back to 2007 TECHNIQUE: Bilateral digital breast tomosynthesis was performed in the CCand MLO projections. Computer aided detection with [employer] 3D 3.1was employed. TISSUE DENSITY: b. There are scattered areas of fibroglandular density. FINDINGS: No suspicious masses, grouped microcalcifications, or areas ofarchitectural distortion are seen. The skin and vascularity are unremarkable. IMPRESSION: Stable mammographic appearance of the breasts. No evidence of malignancyis seen. A negative mammogram in the presence of a clinically suspicious palpable abnormality does not preclude the possibility of malignancy or alter the indications for biopsy. BI-RADS: Category 1: Negative RECOMMENDATION(S): 1: Routine screening mammogram BILATERAL in 1 year. 3341F, 7025F Dictating Physician: MIKE MATHIS MD Electronically Signed by: MIKE MATHIS MD Dic Date/Time: 01/18/24 1301 Sign date/Time: 01/18/24 1302 Misbah Blakely MD IMG BI PROCEDURES Final R esult * HM Urine Albumin Creatinine Ratio (11/18/2022) Urine Albumin Creatinine Ratio abstracted Historical Provider HEALTH MAINTENANCE Final Result * Hemoglobin A1c (11/18/2022) Hemoglobin A1C 5.8 <=6.5 % Blood Venous blood specimen / Unknown us Historical Provider LAB BLOOD ORDERABLES [place] Result * (ABNORMAL) Lipid panel (11/18/2022) [facility] LDL/HDL Ratio 3 0 - 4 Triglycerides 129 0 - 150 mg/dL Cholesterol 248(A) 0 - 200 mg/dL HDL 90 >=40 mg/dL LDL Cholesterol 133(A) 0 - 100 mg/dL Blood Venous blood specimen / Unknown Result [facility] Provider LAB BLOOD ORDERABLES [place] Result * Cervical Cancer Screening: HPV (01/24/2021) [facility] Cervical Cancer Screening: HPV no interpretation , abstracted Result [facility] Provider HEALTH MAINTENANCE Final Result * Hepatitis C Screening (10/27/2019) [facility] Hepatitis C Screening abstracted Result [facility] Provider HEALTH MAINTENANCE Final Result * HIV Screening (06/16/2019) [facility] HIV Screening abstracted Result [facility] Provider HEALTH MAINTENANCE Final Result * Colonoscopy (04/04/2019) [facility] Colonoscopy no interpretation , abstracted Anatomical Region Laterality Modality Other Result [facility] Provider HEALTH MAINTENANCE Final Result from Last 3 Months or Most Recently Relevant to Health Maintenance Insurance MEDICARE Member Subscriber Plan / Payer (Ef fective 2020-Present) Name:SUSANA BARRIOS Relation to Subscriber:Self Name:Susana Corley Payer ID:[id number] Group ID:[id number] Type:Not on file Address: [place] [address] [address] [id number] Advance Directives Documents on File Type Date Recorded Patient [employer] Expl anation Health Care Decision (hx) 01/17/2015 AD MARIO DIRECTIVE Health Care Decision (hx) 01/17/2015 AD MARIO DIRECTIVE Health Care Decision (hx) 01/17/2015 AD MARIO DIRECTIVE Health Care Decision (hx) 01/17/2015 AD MARIO DIRECTIVE Health Care Decision (hx) 01/17/2015 AD MARIO DIRECTIVE Health Care Decision (hx) 01/17/2015 AD MARIO DIRECTIVE Health Care Decision (hx) 01/17/2015 AD MARIO DIRECTIVE Health Care Decision (hx) 01/17/2015 AD MARIO DIRECTIVE Health Care Decision (hx) 01/17/2015 AD MARIO DIRECTIVE Health Care Decision (hx) 01/17/2015 AD MARIO DIRECTIVE Health Care Decision (hx) 01/17/2015 AD MARIO DIRECTIVE Health Care Decision (hx) 01/17/2015 AD MARIO DIRECTIVE Health Care Decision (hx) 01/17/2015 AD MARIO DIRECTIVE Health Care Decision (hx) 01/17/2015 AD MARIO DIRECTIVE Health Care Decision (hx) 01/17/2015 AD MARIO DIRECTIVE Health Care Decision (hx) 01/17/2015 AD MARIO DIRECTIVE Health Care Decision (hx) 01/17/2015 AD MARIO DIRECTIVE Health Care Decision (hx) 01/17/2015 AD MARIO DIRECTIVE Health Care Decision (hx) 01/17/2015 AD MARIO DIRECTIVE Health Care Decision (hx) 01/17/2015 AD MARIO DIRECTIVE Health Care Decision (hx) 01/17/2015 AD MARIO DIRECTIVE Health Care Decision (hx) 01/17/2015 AD MARIO DIRECTIVE Health Care Decision (hx) 01/17/2015 AD MARIO DIRECTIVE Health Care Decision (hx) 01/17/2015 AD MARIO DIRECTIVE Health Care Decision (hx) 01/17/2015 AD MARIO DIRECTIVE Health Care Decision (hx) 01/17/2015 AD MARIO DIRECTIVE Health Care Decision (hx) 01/17/2015 AD MARIO DIRECTIVE Health Care Decision (hx) 01/17/2015 AD MARIO DIRECTIVE Health Care Decision (hx) 01/17/2015 AD MARIO DIRECTIVE Health Care Decision (hx) 01/17/2015 AD MARIO DIRECTIVE Health Care Decision (hx) 01/17/2015 AD MARIO DIRECTIVE Health Care Decision (hx) 01/17/2015 AD MARIO DIRECTIVE Health Care Decision (hx) 01/17/2015 AD MARIO DIRECTIVE Health Care Decision (hx) 01/17/2015 AD MARIO DIRECTIVE Health Care Decision (hx) 01/17/2015 AD MARIO DIRECTIVE Health Care Decision (hx) 01/17/2015 AD MARIO DIRECTIVE Health Care Decision (hx) 01/17/2015 AD MARIO DIRECTIVE Health Care Decision (hx) 01/17/2015 AD MARIO DIRECTIVE Health Care Decision (hx) 01/17/2015 AD MARIO DIRECTIVE Health Care Decision (hx) 01/17/2015 AD MARIO DIRECTIVE Health Care Decision (hx) 01/17/2015 AD MARIO DIRECTIVE Health Care Decision (hx) 01/17/2015 AD MARIO DIRECTIVE Care Teams Track Service Person Relationship Specialty Start Date End Date Colon-Lobo Jay MD [address] [place] [phone] PCP - General Internal Medicine 01/03/25
== END 2025-07-04 11:15 | disposition home or self-care (01) ==
LOC: HO.HPS 10:32
PROVIDERS: Visit Provider Hospitalist
DX: J45.40 Moderate persistent asthma, uncomplicated (principal); J30.9 Allergic rhinitis, unspecified; T78.40XD Allergy, unspecified, subsequent encounter
CPT/HCPCS: 99214; G2211

== ENCOUNTER → 2025-07-04 10:32 | Outpatient (BNVA) | payer OTHER, SELFPAY | PROVIDERS: Visit Provider Hospitalist | DX: J45.40 Moderate persistent asthma, uncomplicated (principal); J30.9 Allergic rhinitis, unspecified; Z91.09 Other allergy status, other than to drugs and biological substances | CPT/HCPCS: 99212 ==